=== PATIENT | female | born 1940 | race Caucasian/White ===

== ENCOUNTER 2020-08-04 15:55 | Inpatient (IN) | payer MEDICARE, OTHER ==
[2020-08-04] MEDS ORDERED: ACETAMINOPHEN TAB 500 MG TAB PO STA (16:24)
[2020-08-04] MEDS: SODIUM CHLORIDE 0.9% 1,000 ML IV SCH (16:35)
[2020-08-04 16:54] LABS: Basophils # (A) 0.1 k/uL (0-0.2); Basophils % (A) 1 %; Eosinophils % (A) 1 %; HGB 14.3 gm/dL (11.4-16.0); Lymphocytes # (A) 0.3 k/uL (1.0-4.8); Lymphocytes % (A) 4 %; MCHC 34.2 g/dL (31.0-37.0); MCV 87.8 fL (80.0-100.0); Mean Platelet Volume 7.2; Monocytes # (A) 0.2 k/uL (0-1.0); Monocytes % (A) 3 %; Neutrophils # (A) 6.2 k/uL (1.3-7.7); Neutrophils % (A) 90 %; Platelet Count 234 k/uL (150-450); RBC 4.78 m/uL (3.80-5.40); RDW 12.8 % (11.5-15.5); WBC 6.8 k/uL (3.8-10.6)
[2020-08-04 17:07] LABS: ALT 42 U/L (4-34); AST 65 U/L (14-36); African American GFR (CKD) >90 (>60 ml/min/1.73 sqM); Albumin 3.4 g/dL (3.5-5.0); Alkaline Phosphatase 50 U/L (38-126); Anion Gap 5 mmol/L; Blood Urea Nitrogen 9 mg/dL (7-17); C Reactive Protein 47.5 mg/L (<10.0); Carbon Dioxide 26 mmol/L (22-30); Chloride 102 mmol/L (98-107); Glucose 182 mg/dL (74-99); LDH 1278 U/L (313-618); Magnesium 1.6 mg/dL (1.6-2.3); Non-African American GFR(CKD) 88 (>60 ml/min/1.73 sqM); Sodium 133 mmol/L (137-145); Total Bilirubin 0.8 mg/dL (0.2-1.3); Total Protein 6.6 g/dL (6.3-8.2)
[2020-08-04 17:09] LABS: Potassium 4.4 mmol/L (3.5-5.1)
[2020-08-04 17:25] LABS: Partial Thromboplastin Time 23.2 sec (22.0-30.0); Prothrombin Time 9.9 sec (9.0-12.0)
[2020-08-04 17:27] LABS: D-Dimer 0.83 mg/L FEU (<0.60)
--- NOTE | 2020-08-04 18:26 | ED ---
SOB HPI - General Source: patient, RN notes reviewed, old records reviewed Mode of arrival: ambulatory Limitations: no limitations <Josselyn Reilly - Last Filed: 08/04/20 18:56> <Casey Zaman - Last Filed: 08/04/20 19:18> - General Chief Complaint: Shortness of Breath Stated Complaint: SOB,Weakness Time Seen by Provider: 08/04/20 16:10 - History of Present Illness Initial Comments: Patient is a transfer from [facility] who presents emergency department today with 1 week of upper respiratory congestion, shortness of breath. Patient complains of generally weak weakness and poor appetite. She was seen at [facility] and has suspected Coban 19 infection based on the CT chest angioma showing no signs of PE but moderate Covid infection. Mild upper mediastinal adenopathy and moderate subcarinal adenopathy. This was interpreted by Dr. Flores. Patient presents emergency Department somewhat hypoxic with oxygen saturation 92% on room air. She was started on supplemental oxygen and IV fluids. She had blood cultures obtained. Patient lab work from previous hospital visit was reviewed and we did add blood cultures and d-dimer testing. Her influenza testing was negative and her rapid Coban test was negative. She denies any known history of sick contacts. She was given 6 mg of Decadron prior to arrival. (Josselyn Reilly) - Related Data Allergies Allergy/AdvReac Type Severity Reaction Status Date / Time No Known Allergies Allergy Verified 08/04/20 16:06 Review of Systems ROS Other: All systems not noted in ROS Statement are negative. <Josselyn Reilly - Last Filed: 08/04/20 18:56> ROS Other: All systems not noted in ROS Statement are negative. <Casey Zaman - Last Filed: 08/04/20 19:18> ROS Statement: Those systems with pertinent positive or pertinent negative responses have been documented in the HPI. Past Medical History Past Medical History: No Reported History History of Any Multi-Drug Resistant Organisms: None Reported Past Surgical History: No Surgical Hx Reported Past Psychological History: No Psychological Hx Reported Smoking Status: Never smoker Past Alcohol Use History: Occasional Past Drug Use History: None Reported <Josselyn Reilly - Last Filed: 08/04/20 18:56> General Exam Limitations: no limitations General appearance: alert, in no apparent distress Head exam: Present: atraumatic, normocephalic, normal inspection Eye exam: Present: normal appearance, PERRL, EOMI. Absent: scleral icterus, conjunctival injection, periorbital swelling ENT exam: Present: normal exam, mucous membranes moist Neck exam: Present: normal inspection. Absent: tenderness, meningismus, lymphadenopathy Respiratory exam: Present: normal lung sounds bilaterally. Absent: respiratory distress, wheezes, rales, rhonchi, stridor Cardiovascular Exam: Present: regular rate, normal rhythm, normal heart sounds. Absent: systolic murmur, diastolic murmur, rubs, gallop, clicks GI/Abdominal exam: Present: soft, normal bowel sounds. Absent: distended, tenderness, guarding, rebound, rigid Neurological exam: Present: alert, oriented X3, CN II-XII intact Psychiatric exam: Present: normal affect, normal mood Skin exam: Present: warm, dry, intact, normal color. Absent: rash <Josselyn Reilly - Last Filed: 08/04/20 18:56> - General Exam Comments Initial Comments: [id number] female. Alert and oriented. No distress. (Josselyn Reilly) Course <Casey Zaman - Last Filed: 08/04/20 19:18> Vital Signs 08/04/20 08/04/20 08/04/20 15:58 17:25 18:03 Temperature 100.3 F H 98.8 F 98.5 F Pulse Rate 73 83 64 Respiratory 22 24 18 Rate Blood Pressure 151/77 135/45 154/73 O2 Sat by Pulse 93 L 93 L 92 L Oximetry - Reevaluation(s) Reevaluation #1: 08/04/20 19:17 PA supervision: I personally evaluate this case patient does present from a outside facility, [facility], with complaints of shortness of breath. The workup demonstrates evidence of Covid 19 pneumonia. She also demonstrate hypoxemia. Patient will be admitted. I do agree with the assessment and plan. (Casey Zaman) Procedures - [place] Protocol (Time Out) Nurse: Miya Oliva <Josselyn Reilly - Last Filed: 08/04/20 18:56> Medical Decision Making - Lab Data Result diagrams: 08/04/20 16:38 08/04/20 16:38 - Radiology Data Radiology results: report reviewed <Josselyn Reilly - Last Filed: 08/04/20 18:56> - Lab Data Result diagrams: 08/04/20 16:38 08/04/20 16:38 <Casey Zaman - Last Filed: 08/04/20 19:18> - Medical Decision Making Irma is a 80-year-old female presents emergency department today for evaluat ion for shortness of breath weakness fatigue. Labwork was reviewed and showed a mildly elevated d-dimer of 0.83. White blood cell count was normal at 6.8. Patient's electrolytes are within normal limits. Glucose is 182. She did receive 6 mg of Decadron at [facility]. CT angios shows no signs of PE but moderate cold 19 infection. Patient was found be approximately placed on supplemental oxygen. He does have elevated CRP and LDH. Her rapid covert test is negative. Influenza test was negative earlier today. He tolerated this time for weakness hypoxia. Case discussed with Dr. Zaman. Placed on covid protocol. (Josselyn Reilly) - Lab Data Lab Results 08/04/20 08/04/20 08/04/20 Range/Units 16:37 16:38 16:38 WBC 6.8 (3.8-10.6) k/uL RBC 4.78 (3.80-5.40) m/uL Hgb 14.3 (11.4-16.0) gm/dL Hct 42.0 (34.0-46.0) % MCV 87.8 (80.0-100.0) fL MCH 30.0 (25.0-35.0) pg MCHC 34.2 (31.0-37.0) g/dL RDW 12.8 (11.5-15.5) % Plt Count 234 (150-450) k/uL MPV 7.2 Neutrophils % 90 % Lymphocytes % 4 % Monocytes % 3 % Eosinophils % 1 % Basophils % 1 % Neutrophils # 6.2 (1.3-7.7) k/uL Lymphocytes # 0.3 L (1.0-4.8) k/uL Monocytes # 0.2 (0-1.0) k/uL Eosinophils # 0.0 (0-0.7) k/uL Basophils # 0.1 (0-0.2) k/uL PT 9.9 (9.0-12.0) sec INR 1.0 (<1.2) APTT 23.2 (22.0-30.0) sec D-Dimer 0.83 H (<0.60) mg/L FEU Sodium (137-145) mmol/L Potassium (3.5-5.1) mmol/L Chloride (98-107) mmol/L Carbon Dioxide (22-30) mmol/L Anion Gap mmol/L BUN (7-17) mg/dL Creatinine (0.52-1.04) mg/dL Est GFR (CKD-EPI)AfAm (>60 ml/min/1.73 sqM) Est GFR (CKD-EPI)NonAf (>60 ml/min/1.73 sqM) Glucose (74-99) mg/dL Plasma Lactic Acid Prashant (0.7-2.0) mmol/L Calcium (8.4-10.2) mg/dL Magnesium (1.6-2.3) mg/dL Total Bilirubin (0.2-1.3) mg/dL AST (14-36) U/L ALT (4-34) U/L Alkaline Phosphatase (38-126) U/L Lactate Dehydrogenase (313-618) U/L C-Reactive Protein (<10.0) mg/L Total Protein (6.3-8.2) g/dL Albumin (3.5-5.0) g/dL Coronavirus (PCR) Not Detected (Not Detectd) 08/04/20 08/04/20 Range/Units 16:38 16:38 WBC (3.8-10.6) k/uL RBC (3.80-5.40) m/uL Hgb (11.4-16.0) gm/dL Hct (34.0-46.0) % MCV (80.0-100.0) fL MCH (25.0-35.0) pg MCHC (31.0-37.0) g/dL RDW (11.5-15.5) % Plt Count (150-450) k/uL MPV Neutrophils % % Lymphocytes % % Monocytes % % Eosinophils % % Basophils % % Neutrophils # (1.3-7.7) k/uL Lymphocytes # (1.0-4.8) k/uL Monocytes # (0-1.0) k/uL Eosinophils # (0-0.7) k/uL Basophils # (0-0.2) k/uL PT (9.0-12.0) sec INR (<1.2) APTT (22.0-30.0) sec D-Dimer (<0.60) mg/L FEU Sodium 133 L (137-145) mmol/L Potassium 4.4 (3.5-5.1) mmol/L Chloride 102 (98-107) mmol/L Carbon Dioxide 26 (22-30) mmol/L Anion Gap 5 mmol/L BUN 9 (7-17) mg/dL Creatinine 0.59 (0.52-1.04) mg/dL Est GFR (CKD-EPI)AfAm >90 (>60 ml/min/1.73 sqM) Est GFR (CKD-EPI)NonAf 88 (>60 ml/min/1.73 sqM) Glucose 182 H (74-99) mg/dL Plasma Lactic Acid Prashant 1.2 (0.7-2.0) mmol/L Calcium 8.0 L (8.4-10.2) mg/dL Magnesium 1.6 (1.6-2.3) mg/dL Total Bilirubin 0.8 (0.2-1.3) mg/dL AST 65 H (14-36) U/L ALT 42 H (4-34) U/L Alkaline Phosphatase 50 (38-126) U/L Lactate Dehydrogenase 1278 H (313-618) U/L C-Reactive Protein 47.5 H (<10.0) mg/L Total Protein 6.6 (6.3-8.2) g/dL Albumin 3.4 L (3.5-5.0) g/dL Coronavirus (PCR) (Not Detectd) 08/04/20 18:25 EKG performed at 10:37 AM shows sinus rhythm with premature severe ventricular complex. Low voltage QRS. Septal infarct. Care is for 74. QT QTc is 350/388. (Josselyn Reilly) - Radiology Data Review of CT angiogram report showing moderate occult infection with surrounding mediastinal adenopathy. No signs of pulmonary bolus. (Josselyn Reilly) Disposition Is patient prescribed a controlled substance at d/c from ED?: No Time of Disposition: 19:00 <Josselyn Reilly - Last Filed: 08/04/20 18:56> <Casey Zaman - Last Filed: 08/04/20 19:18> Clinical Impression: Suspected COVID-19 virus infection, Hypoxia, Weakness Disposition: ADMITTED IP TO THIS HOSP Condition: Good Referrals: Domenic Allison MD [Primary Care Provider] - 1-2 days
[2020-08-04] MEDS ORDERED: IBUPROFEN 400 MG TAB PO PRN (19:00)
[2020-08-04] MEDS ORDERED: NALOXONE 0.4 MG/ML 1 ML VIAL IV PRN (19:00)
[2020-08-04] MEDS ORDERED: KETOROLAC 15 MG/ML 1 ML VIAL IVP PRN (19:00)
[2020-08-04] MEDS ORDERED: ONDANSETRON 4 MG/2 ML VIAL IVP PRN (19:00)
[2020-08-04] MEDS ORDERED: ACETAMINOPHEN TAB 325 MG TAB PO PRN (19:00)
[2020-08-04] MEDS ORDERED: ALBUTEROL HFA INHALER INHALATION STA (19:03)
--- NOTE | 2020-08-04 19:22 | XR ---
EXAMINATION TYPE: XR chest 1V DATE OF EXAM: 08/04/2020 COMPARISON: Outside CTA chest earlier today. HISTORY: Cough. TECHNIQUE: Single AP portable frontal upright view of the chest is obtained. FINDINGS: There are peripheral opacities bilaterally. No pleural effusion or pneumothorax bilateral ly. The cardiac silhouette size is mildly enlarged. The osseous structures are intact. IMPRESSION: Bilateral peripheral acute infiltrates consistent with covid 19 infection.
[2020-08-05 00:29] LABS: Ferritin 661.7 ng/mL (10.0-291.0)
[2020-08-05] MEDS: PANTOPRAZOLE 40 MG/10 ML VIAL IV SCH (09:08)
[2020-08-05] MEDS: DEXAMETHASONE SOD PHOSPHATE 10 MG/ML 1 ML VIAL IV SCH (09:08)
[2020-08-05] MEDS: SODIUM CHLORIDE 0.9% 1,000 ML IV SCH ×2 (09:09→13:02)
[2020-08-05] MEDS: ENOXAPARIN 40 MG/0.4 ML SYRINGE SQ SCH (09:09)
[2020-08-05] MEDS: MAGNESIUM SULFATE-D5W PMX 1 GM in DEXTROSE/WATER 1 100ML.BAG IVPB SCH ×2 (13:00→14:42)
[2020-08-05 13:14] VITALS: BMI 29.7
--- NOTE | 2020-08-05 14:08 | P.HPIM ---
History of Present Illness 72-year-old female who was recently diagnosed with a covid 9 earlier this month around 10-12 days ago came in with compensative generalized weakness which is worsening poor appetite and few episodes of diarrhea. Patient is quite weak and is needing help from family members. Patient was mild hypoxic with mildly elevated d-dimer because of which the CT angios the chest was obtained at the [facility] which didn't show any pulmonary embolism which showed mild upper mediastinal adenopathy and subcarinal adenopathy. Patient was evaluated by pulmonology cleared for discharge but patient is saturating at 90% and patien t is quite weak because of which will obtain PT and OT consultation and monitor overnight possibility of discharge tomorrow if her oxygen saturations remained stable patient is presently on Decadron which will be continued Review of Systems REVIEW OF SYSTEMS: CONSTITUTIONAL: As mentioned in HPI HEENT: No recent visual problems or hearing problems. Denied any sore throat. CARDIOVASCULAR: No chest pain, orthopnea, PND, no palpitations, no syncope. PULMONARY: no cough, no hemoptysis. GASTROINTESTINAL: no nausea, no vomiting, no abdominal pain. NEUROLOGICAL: No headaches, no weakness, no numbness. HEMATOLOGICAL: Denies any bleeding or petechiae. GENITOURINARY: Denies any burning micturition, frequency, or urgency. MUSCULOSKELETAL/RHEUMATOLOGICAL: Denies any joint pain, swelling, or any muscle pain. ENDOCRINE: Denies any polyuria or polydipsia. The rest of the 14-point review of systems is negative. Past Medical History Past Medical History: No Reported History History of Any Multi-Drug Resistant Organisms: None Reported Past Surgical History: Appendectomy Smoking Status: Never smoker Medications and Allergies Home Medications Medication Instructions Recorded Confirmed Type Aspirin EC [Ecotrin Low Dose] 81 mg PO DAILY 08/04/20 08/04/20 History Biotin 300mcg 1 tab PO DAILY 08/04/20 08/04/20 History Calcium Lactate 84mg 1 tab PO BID 08/04/20 08/04/20 History Love Extract (Unknown Strength) 1 tab PO DAILY 08/04/20 08/04/20 History Cholecalciferol (Vitamin D3) 125 mcg PO DAILY 08/04/20 08/04/20 History [Vitamin D3] Fish Oil 100-160mg 1 tab PO DAILY 08/04/20 08/04/20 History Gelatin 650mg 1 tab PO DAILY 08/04/20 08/04/20 History Lycopene 10 mg PO DAILY 08/04/20 08/04/20 History Vitamin A 25,000iu 1 tab PO DAILY 08/04/20 08/04/20 History Vitamin K2 100mcg 1 tab PO DAILY 08/04/20 08/04/20 History Allergies Allergy/AdvReac Type Severity Reaction Status Date / Time No Known Allergies Allergy Verified 08/04/20 21:19 Physical Exam Vitals: Vital Signs Temp Pulse Pulse Resp BP BP Pulse Ox 08/05/20 11:29 98.1 F 76 17 198/80 90 L 08/05/20 09:00 18 08/05/20 02:00 97.6 F 59 L 18 149/78 91 L 08/04/20 20:00 97.7 F 67 160/86 94 L 08/04/20 19:35 98 F 64 18 160/81 95 08/04/20 18:03 98.5 F 64 18 154/73 92 L 08/04/20 17:25 98.8 F 83 24 135/45 93 L 08/04/20 15:58 100.3 F H 73 22 151/77 93 L Intake and Output 08/04/20 08/05/20 08/05/20 22:59 06:59 14:59 Intake Total 1200 Balance 1200 Intake: Intake, IV Titration 700 Amount Sodium Chloride 0.9% 1, 700 000 ml @ 100 mls/hr IV . Q10H [facility] Rx#:[id number] Oral 500 Other: Voiding Method Toilet # Voids 2 Weight 76.204 kg 76.204 kg PHYSICAL EXAMINATION: GENERAL: The patient is alert and oriented x3, not in any acute distress. Well developed, well nourished. HEENT: Pupils are round and equally reacting to light. EOMI. No scleral icterus. No conjunctival pallor. Normocephalic, atraumatic. No pharyngeal erythema. No thyromegaly. CARDIOVASCULAR: S1 and S2 present. No murmurs, rubs, or gallops. PULMONARY: Chest is clear to auscultation, no wheezing or crackles. ABDOMEN: Soft, nontender, nondistended, normoactive bowel sounds. No palpable organomegaly. MUSCULOSKELETAL: No joint swelling or deformity. EXTREMITIES: No cyanosis, clubbing, or pedal edema. NEUROLOGICAL: Gross neurological examination did not reveal any focal deficits. SKIN: No rashes. Results CBC & Chem 7: 08/04/20 16:38 08/04/20 16:38 Labs: Abnormal Lab Results - Last 24 Hours (Table) 08/04/20 08/04/20 08/04/20 Range/Units 16:38 16:38 16:38 Lymphocytes # 0.3 L (1.0-4.8) k/uL D-Dimer 0.83 H (<0.60) mg/L FEU Sodium 133 L (137-145) mmol/L Glucose 182 H (74-99) mg/dL Calcium 8.0 L (8.4-10.2) mg/dL Ferritin 661.7 H (10.0-291.0) ng/mL AST 65 H (14-36) U/L ALT 42 H (4-34) U/L Lactate Dehydrogenase 1278 H (313-618) U/L C-Reactive Protein 47.5 H (<10.0) mg/L Albumin 3.4 L (3.5-5.0) g/dL Procalcitonin (0.02-0.09) ng/mL 08/04/20 Range/Units 16:38 Lymphocytes # (1.0-4.8) k/uL D-Dimer (<0.60) mg/L FEU Sodium (137-145) mmol/L Glucose (74-99) mg/dL Calcium (8.4-10.2) mg/dL Ferritin (10.0-291.0) ng/mL AST (14-36) U/L ALT (4-34) U/L Lactate Dehydrogenase (313-618) U/L C-Reactive Protein (<10.0) mg/L Albumin (3.5-5.0) g/dL Procalcitonin 0.10 H (0.02-0.09) ng/mL Thrombosis Risk Factor Assmnt - Choose All That Apply Each Factor Represents 1 point: Obesity (BMI >25) Each Risk Factor Represents 3 Points: Age 75 years or older Thrombosis Risk Factor Assessment Total Risk Factor Score: 4 Thrombosis Risk Factor Assessment Level: Moderate Risk Assessment and Plan Plan: -Covid 19 infection: Patient is on room air but the low normal saturations will be monitored overnight because of significant generalized weakness patient will be evaluated by PT and OT possibility of discharge it later today or tomorrow morning -Diarrhea: Secondary to viral gastroenteritis. -Rule out pulmonary embolism Hypertension essential tremor benign DVT prophylaxis with Lovenox
[2020-08-05] MEDS: AZITHROMYCIN 500 MG TAB PO SCH (14:42)
--- NOTE | 2020-08-05 14:45 | CONS ---
CONSULTATION PULMONARY/CRITICAL CARE CONSULTATION: DATE OF SERVICE: 08/05/2020 REASON FOR CONSULTATION: Shortness of breath, weakness. This is a 80-year-old female who was admitted through the emergency room on August 04, 2020. She apparently was initially seen at [facility] and transferred down to [facility]. She states she has been sick for at least 10-11 days, maybe a bit longer. The patient apparently tested negative for COVID infection. She apparently was complaining of some weakness, decreased appetite, fatigue, and mild cough. She really denied much in the way of shortness of breath. She apparently was seen at [facility] most suspected to have COVID-19 infection based on her symptoms and her CT scan. Her saturation was 92% on room air. Currently, she is not on any oxygen therapy. She is getting saline at 100 mL an hour. I questioned the nurse why this patient was actually even admitted. She looks quite stable. The patient herself is a bit confused as to why she was brought down to [facility], especially since she tested negative for COVID infection. . HOME MEDICATIONS: Include vitamin K, galan extract, calcium lactate, biotin, gelatin, fish oil, vitamin A, vitamin D3, and aspirin. Current medications are reviewed. ALLERGIES: Denied. PAST MEDICAL HISTORY: Negative. SURGICAL HISTORY: None. SOCIAL HISTORY: Negative for tobacco or illicit drug use. She drinks occasionally. FAMILY HISTORY: Noncontributory. REVIEW OF SYSTEMS: CONSTITUTIONAL: Weakness/fatigue. NEUROLOGIC: Negative. HEENT: Negative. CARDIOVASCULAR: Negative. PULMONARY: Mild shortness of breath, not present currently and mild cough and chest congestion. GI: Nausea. : Negative. RHEUMATOLOGIC: Negative. IMMUNOLOGIC: Negative. ENDOCRINOLOGIC: Negative. DERMATOLOGIC: Negative. Current vital signs include a temperature 98.1, T-max is 100.3, heart rate 76, respiratory rate 17, blood pressure 149/78 mean 101, room air saturation between 90% and 92%. She appears in no acute distress. There is no audible wheezing, use of accessory muscles or conversational dyspnea. HEENT: Examination is grossly unremarkable. NECK: Supple, full range of motion. No adenopathy. Neck veins are flat. CARDIOVASCULAR: Examination reveals regular rhythm and rate. Heart rate 76 beats per minute. S1, S2 normal. LUNGS: Reveal relatively clear breath sounds. No wheezes, rhonchi, or crackles. Breath sounds equal bilaterally. ABDOMEN: Soft, bowel sounds are heard. EXTREMITIES: Intact. No cyanosis, clubbing, or edema. SKIN: Without rash. NEUROLOGIC: Examination is nonfocal. CBC was normal. White count 6.8, hemoglobin 14.3, hematocrit 42.0, platelet count 234,000. PT, INR and PTT all normal. D-dimer is 0.83. Sodium 133, potassium 4.4, chloride 102, CO2 is 26, anion gap is 5. BUN and creatinine were 9 and 0.59, glucose 182, calcium 8, ferritin 661. AST, ALT were 65 and 42 respectively. LDH 1278. C- reactive protein 47.5. Procalcitonin 0.10. COVID testing was negative. Microbiology is currently negative. The chest x-ray does suggest some either atelectasis or infiltrate in both lungs, more in the lower lobes than in the upper lobes. Medications reviewed. The patient is currently on Tylenol, aspirin, Rocephin, vitamin D3, Decadron, Lovenox, ibuprofen, Toradol, magnesium replacement, Narcan, Zofran, Protonix, and saline IV. ASSESSMENT: 1. Rule out COVID-19 pneumonitis, with a false negative COVID test. 2. Rule out community-acquired pneumonia. 3. History of no other major medical problems. PLAN: I will add some Zithromax to her regimen. Her other medications are fine for now. I would consider repeat testing her. Additional recommendations and suggestions ARE forthcoming. Her COVID-19 PCR was negative here. Will continue to follow. It will be nice also to be able to get a peek at the CAT scan that was done at [facility]. No additional recommendations are made. Prognosis is guarded. MMODL / IJN: [id number] /
[2020-08-05] MEDS ORDERED: hydrALAZINE HCL 10 MG TAB PO STA (17:33)
[2020-08-06] MEDS: SODIUM CHLORIDE 0.9% 1,000 ML IV SCH ×2 (05:07→09:14)
[2020-08-06 07:15] LABS: Glucose,Whole Blood 138 mg/dL (75-99)
[2020-08-06] MEDS: INSULIN ASPART (NovoLOG) 100 UNIT/ML VIAL SQ SCH ×2 (08:50→13:04)
[2020-08-06] MEDS: DEXAMETHASONE SOD PHOSPHATE 10 MG/ML 1 ML VIAL IV SCH (08:50)
[2020-08-06] MEDS: AZITHROMYCIN 500 MG TAB PO SCH (08:53)
[2020-08-06] MEDS: PANTOPRAZOLE 40 MG/10 ML VIAL IV SCH (08:54)
[2020-08-06] MEDS: ENOXAPARIN 40 MG/0.4 ML SYRINGE SQ SCH (08:54)
[2020-08-06] MEDS ORDERED: ASPIRIN 81 MG PO SCH (09:00)
[2020-08-06] MEDS ORDERED: CHOLECALCIFEROL 1,000 UNIT TAB PO SCH (09:00)
[2020-08-06 11:12] LABS: Glucose,Whole Blood 164 mg/dL (75-99)
[2020-08-06 11:40] VITALS: BP 182/86; PULSE 61; RESP 17; TEMP 98
--- NOTE | 2020-08-06 13:42 | P.DS ---
Providers Date of admission: 08/04/20 19:16 Expected date of discharge: 08/06/20 Attending physician: Ned Lowry Consults: 08/04/20 19:00 Consult Physician Stat Consulting Provider: Caridad Guo Consult Reason/Comments: suspected covid, infiltrate Do you want consulting provider notified?: Yes, Notify in am Primary care physician: Domenic Allison MD Hospital Course: Final diagnosis -Covid 19 infection -Diarrhea: Secondary to viral gastroenteritis -Ruled out pulmonary embolism -Hypertension -essential tremor benign -DVT prophylaxis Discharge disposition Patient is being discharged in a stable condition with guarded prognosis to home. Patient will follow-up with Dr. Kaity Allison in the outpatient setting upon discharge. Patient is to continue with oral antibiotics in the form of Zithromax 500 mg daily for the next 4 days along with Ceftin 500 mg twice daily for the next 4 days to complete the course. She will also continue on dexamethasone 6mg daily to complete the course. Total time taken is greater than 35 minutes. History of present illness This is a 80-year-old female who was recently admitted from [facility] who was recently diagnosed with Covid 19 earlier in the month and was experiencing generalized weakness, poor appetite, diarrhea along with some mild hypoxia and elevated d-dimer was transferred here for further evaluation. Patient was seen and evaluated by pulmonary. She had a CT angiogram of the chest which was negative for pulmonary embolism but did show some adenopathy in the upper mediastinal and subcarinal area. Patient's oxygen saturations were 90% and patient continued to be quite weak. Patient was seen and evaluated by physical therapy recommending continuing to use her walker and family will be staying with her for a few days to help. Today patient's oxygen saturation is 95% on room air and patient is maintained on dexamethasone. Patient will continue with oral Decadron 6 mg daily to complete a course along with Zithromax and Ceftin. Patient's blood pressure during hospitalization was slightly elevated and she states her blood pressure is high when in the hospital or at the doctor's office. Start the patient to obtain a blood pressure cuff and keep a diary of blood pressure readings and monitor closely and bring with her to primary care follow-up. Patient does not take any blood pressure medications in the outpatient setting. Currently no reports of chest pain, shortness of breath, or palpitations. Patient is afebrile. No reports of nausea or vomiting and patient is tolerating diet. Patient will be discharged home today. On exam vital signs are stable. Temp is 98.0F, pulse is 61, respirations are 17, blood pressure is 182/86, oxygen saturation is 93-95% on room air. Cardio S1, S2 are muffled. Respiratory system shows diminished breath sounds at the bases with no wheezing or rhonchi noted. Abdomen is soft and nontender. Nervous system shows no focal deficits. Please refer to medication reconciliation sheet for a list of medications. Patient Condition at Discharge: Good Plan - Discharge Summary Discharge Rx Participant: No New Discharge Prescriptions: New Cefuroxime Axetil [Ceftin] 500 mg PO BID 3 Days #6 tab Dexamethasone 6 mg PO DAILY 8 Days #8 tablet Acetaminophen Tab [Tylenol] 650 mg PO Q6HR PRN tab PRN Reason: Mild Pain Or Fever > 100.5 Azithromycin [Zithromax] 500 mg PO DAILY 4 Days #4 tab Continue Vitamin K2 100mcg 1 tab PO DAILY Calcium Lactate 84mg 1 tab PO BID Biotin 300mcg 1 tab PO DAILY Lycopene 10 mg PO DAILY Gelatin 650mg 1 tab PO DAILY Fish Oil 100-160mg 1 tab PO DAILY Vitamin A 25,000iu 1 tab PO DAILY Cholecalciferol (Vitamin D3) [Vitamin D3] 125 mcg PO DAILY Aspirin EC [Ecotrin Low Dose] 81 mg PO DAILY Love Extract (Unknown Strength) 1 tab PO DAILY Discharge Medication List Aspirin EC [Ecotrin Low Dose] 81 mg PO DAILY 08/04/20 [History] Biotin 300mcg 1 tab PO DAILY 08/04/20 [History] Calcium Lactate 84mg 1 tab PO BID 08/04/20 [History] Love Extract (Unknown Strength) 1 tab PO DAILY 08/04/20 [History] Cholecalciferol (Vitamin D3) [Vitamin D3] 125 mcg PO DAILY 08/04/20 [History] Fish Oil 100-160mg 1 tab PO DAILY 08/04/20 [History] Gelatin 650mg 1 tab PO DAILY 08/04/20 [History] Lycopene 10 mg PO DAILY 08/04/20 [History] Vitamin A 25,000iu 1 tab PO DAILY 08/04/20 [History] Vitamin K2 100mcg 1 tab PO DAILY 08/04/20 [History] Acetaminophen Tab [Tylenol] 650 mg PO Q6HR PRN tab 08/06/20 [Rx] Azithromycin [Zithromax] 500 mg PO DAILY 4 Days #4 tab 08/06/20 [Rx] Cefuroxime Axetil [Ceftin] 500 mg PO BID 3 Days #6 tab 08/06/20 [Rx] Dexamethasone 6 mg PO DAILY 8 Days #8 tablet 08/06/20 [Rx] Follow up Appointment(s)/Referral(s): Domenic Allison MD [Primary Care Provider] - 1-2 days (PT would like to make appointment. Please call office for Hospital follow up) Patient Instructions/Handouts: Viral Pneumonia (DC) Activity/Diet/Wound Care/Special Instructions: Okay for discharge Activity limited until follow-up Continue current diet Follow up with primary care provider upon discharge Obtain a blood pressure cuff and keep a daily log of blood pressure readings for primary care follow-up Continue with antibiotics until finished Continue with steroids until finished Discharge Disposition: HOME SELF-CARE
--- NOTE | 2020-08-06 14:27 | P.PN ---
Subjective Progress Note Date: 08/06/20 Principal diagnosis: Community-acquired pneumonia The patient is seen today 08/06/2020 in follow-up on the regular medical floor. She is awake and alert in no acute distress. She is currently up in the room ambulating. Maintaining O2 saturations in the 90s on room air. Remains on ceftriaxone and azithromycin along with Decadron, Lovenox, vitamin supplements. Objective - Vital Signs Vital signs: Vital Signs Temp 98 F 08/06/20 11:40 Pulse 61 08/06/20 11:40 Resp 17 08/06/20 11:40 BP 182/86 08/06/20 11:40 Pulse Ox 93 L 08/06/20 11:40 Intake & Output 08/05/20 08/06/20 08/06/20 18:59 06:59 18:59 Output Total 6 Balance -6 Weight 76.204 kg Output: Urine 6 Other: Voiding Method Toilet Toilet # Bowel Movements 4 - Exam GENERAL EXAM: Alert, active, very pleasant 80-year-old female patient, on room air, comfortable in no apparent distress. HEAD: Normocephalic. EYES: Normal reaction of pupils, equal size. NOSE: Clear with pink turbinates. THROAT: No erythema or exudates. NECK: No masses, no JVD. CHEST: No chest wall deformity. LUNGS: Equal air entry with faint bibasilar crackles posteriorly. CVS: S1 and S2 normal with no audible murmur, regular rhythm. ABDOMEN: No hepatosplenomegaly, normal bowel sounds, no guarding or rigidity. SPINE: No scoliosis or deformity SKIN: No rashes CENTRAL NERVOUS SYSTEM: No focal deficits, tone is normal in all 4 extremities. EXTREMITIES: There is no peripheral edema. No clubbing, no cyanosis. Peripheral pulses are intact. - Labs CBC & Chem 7: 08/04/20 16:38 08/04/20 16:38 Labs: Abnormal Lab Results - Last 24 Hours (Table) 08/06/20 08/06/20 Range/Units 07:14 11:11 POC Glucose (mg/dL) 138 H 164 H (75-99) mg/dL Assessment and Plan Assessment: 1 community-acquired pneumonia, recovered. CoVID 19 screen negative 2 No other significant medical history Plan: The patient was seen and evaluated by Dr. Guo She is cleared for discharge from the pulmonary standpoint Follow-up closely with her PCP I, the cosigning physician, performed a history & physical examination of the patient. Lungs sounds with faint bibasilar crackles posteriorly. Maintaining good O2 saturations in the 90s on room air. I discussed the assessment and plan of care with my nurse practitioner, Chinyere Ngo. I attest to the above note as dictated by her.
--- NOTE | 2020-08-11 06:25 | CDI ---
Documentation Clarification Form Date: 08/11/20 From: Asia Greene Phone: Please call Vanessa Tam at from 8-5pm for questions Admit Date: 08/04/2020 07:16:00 PM Patient Name: Irma Pavon Visit Number: [id number] Discharge Date: 08/06/2020 02:15:00 PM ATTENTION: The Clinical Documentation Specialists (CDI) and [facility] Coding Staff appreciate your assistance in clarifying documentation. Please respond to the clarification below the line at the bottom and electronically sign. The CDI & [facility] Coding staff will review the response and follow-up if needed. Please note: Queries are made part of the Legal Health Record. If you have any questions, please contact the author of this message via ITS. Dr. Peter Stewart, Conflicting documentation has been found in the medical record: Your DS states COVID [address] Jaimes's consult states rule out COVID19 pneumonitis, with a false negative COVID test. Dr Guo's PN- community -acquired pneumonia, recovered. COVID screen negative. History/Risk Factors: HTN, viral gastroenteritis Clinical Indicators: Patient diagnosed with COVID 19 earlier this month around 10-12 days ago came in with compensative generalized weakness with worsening poor appetite and few episodes of diarrhea. Mildly hypoxic with elevated d-dimer because of which the CT angios the chest was obtained and negative for PE. Saturating at 90%. CXR- bilateral peripheral acute infiltrates consistent with COVID 19 infection. COVID TEST: Negative Treatment: IV Rocephin, Dexamethasone IV,Azithromycin 500 mg po In your opinion, what is the most clinically appropriate diagnosis for this patient? Yes, COVID 19 infection is present/active during this admission as evidence by (additional clinical support) No, COVID 19 infection was ruled out Other explanation of clinical findings Unable to determine (no explanation for clinical findings) Unable to determine. I cannot speak for Dr. Jaimes or Dr. Brant GROVE
--- NOTE | 2020-08-17 10:28 | CDI ---
Unable to determineDocumentation Clarification Form Date: 08/17/20 From: Asia Greene Phone: If you have a question about this query, please contact Vanessa Tam, Gas Collection System Operator at [phone] between 8am and 5pm Admit Date: 08/04/2020 07:16:00 PM Patient Name: Irma Pavon Visit Number: [id number] Discharge Date: 08/06/2020 02:15:00 PM ATTENTION: The Clinical Documentation Specialists (CDI) and [facility] Coding Staff appreciate your assistance in clarifying documentation. Please respond to the clarification below the line at the bottom and electronically sign. The CDI & [facility] Coding staff will review the response and follow-up if needed. Please note: Queries are made part of the Legal Health Record. If you have any questions, please contact the author of this message via ITS. Dr. Casey Jaimes, Conflicting documentation has been found in the medical record: Per Dr Stewart's DS states COVID 19 infection. Your consult states rule out COVID19 pneumonitis, with a false negative COVID test. Dr Guo's PN- community -acquired pneumonia, recovered. COVID screen negative. History/Risk Factors: HTN, viral gastroenteritis Clinical Indicators: Patient diagnosed with COVID 19 earlier this month around 10-12 days ago came in with compensative generalized weakness with worsening poor appetite and few episodes of diarrhea. Mildly hypoxic with elevated d-dimer because of which the CT angios the chest was obtained and negative for PE.Saturating at 90%. CXR- bilateral peripheral acute infiltrates consistent with COVID 19 infection. COVID TEST: Negative Treatment: IV Rocephin, Dexamethasone IV,Azithromycin 500 mg po In your opinion, what is the most clinically appropriate diagnosis for this patient? Yes, COVID 19 infection is present/active during this admission as evidence by (additional clinical support) No, COVID 19 infection was ruled out Other explanation of clinical findings Unable to determine (no explanation for clinical findings) Unable to determine MTDD
== END 2020-08-06 14:15 | disposition home or self-care (01) | DRG 177 ==
LOC: EC 15:55 → 6NMEDSUR 19:16
PROVIDERS: ADMIT Internal Medicine; ATTEND Internal Medicine
DX: U07.1 COVID-19 (principal); J12.89 Other viral pneumonia; A08.39 Other viral enteritis; I10 Essential (primary) hypertension; R09.02 Hypoxemia; G25.0 Essential tremor; Z79.82 Long term (current) use of aspirin; Z79.899 Other long term (current) drug therapy
CPT/HCPCS: 36415; 71045; 80053; 82728; 83605; 83615; 83735; 84145; 85025; 85379; 85610; 85730; 86140; 87635; 93005; 94640; 96365; 96366; 99285

== ENCOUNTER 2023-07-03 17:16 | Inpatient (IN) | payer MEDICARE, OTHER ==
--- NOTE | 2023-07-03 18:33 | ED ---
General Adult HPI - General Chief complaint: Weakness Stated complaint: Weakness Time Seen by Provider: 07/03/23 17:29 Source: patient, EMS Mode of arrival: EMS Limitations: no limitations - History of Present Illness Initial comments: A 83-year-old female presents to the ED with a chief complaint of generalized weakness. Patient states that she woke up at 4 AM feeling generally weak. States that she went back to sleep and still felt the same way when she woke up this morning. States that she tried to cook eggs when so woke back up in the morning at approximately 6 AM but was having significant difficulty doing so. Upon EMS arrival, patient was found lying down on the ground having vomited on herself. At this time, patient reports only symptoms of generalized weakness. Did not have any other complaints at onset of this. 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 Was sent here for further evaluation. Currently, patient denies chest pain or shortness of breath. No complaints. - Related Data Home Medications Medication Instructions Recorded Confirmed Aspirin EC [Ecotrin Low Dose] 81 mg PO DAILY 08/04/20 08/04/20 Biotin 300mcg 1 tab PO DAILY 08/04/20 08/04/20 Calcium Lactate 84mg 1 tab PO BID 08/04/20 08/04/20 Love Extract (Unknown Strength) 1 tab PO DAILY 08/04/20 08/04/20 Cholecalciferol (Vitamin D3) 125 mcg PO DAILY 08/04/20 08/04/20 [Vitamin D3 (5000 Iu)] Fish Oil 100-160mg 1 tab PO DAILY 08/04/20 08/04/20 Gelatin 650mg 1 tab PO DAILY 08/04/20 08/04/20 Lycopene 10 mg PO DAILY 08/04/20 08/04/20 Vitamin A 25,000iu 1 tab PO DAILY 08/04/20 08/04/20 Vitamin K2 100mcg 1 tab PO DAILY 08/04/20 08/04/20 Previous Rx's Medication Instructions Recorded Acetaminophen Tab [Tylenol] 650 mg PO Q6HR PRN tab 08/06/20 Azithromycin [Zithromax] 500 mg PO DAILY 4 Days #4 tab 08/06/20 cefUROXime axetiL [Ceftin] 500 mg PO BID 3 Days #6 tab 08/06/20 dexAMETHasone [Dexamethasone] 6 mg PO DAILY 8 Days #8 tablet 08/06/20 Allergies Allergy/AdvReac Type Severity Reaction Status Date / Time No Known Allergies Allergy Verified 08/04/20 21:19 Review of Systems ROS Statement: Those systems with pertinent positive or pertinent negative responses have been documented in the HPI. ROS Other: All systems not noted in ROS Statement are negative. Past Medical History Past Medical History: No Reported History History of Any Multi-Drug Resistant Organisms: None Reported Past Surgical History: Appendectomy Past Psychological History: No Psychological Hx Reported Smoking Status: Never smoker General Exam Limitations: no limitations General appearance: alert, in no apparent distress ENT exam: Present: other (Right facial droop upon asking patient to smile. Patient does have dysarthria.) Respiratory exam: Present: normal lung sounds bilaterally Cardiovascular Exam: Present: regular rate, normal rhythm GI/Abdominal exam: Present: soft Neurological exam: Present: alert, oriented X3, other (Finger to nose, [id number], rapid alternating hand movements intact. NIH stroke scale of 2. Patient received one point for facial droop and 1. for dysarthria.) Skin exam: Present: warm, dry Course Vital Signs 07/03/23 17:20 Temperature 99.1 F Pulse Rate 64 Respiratory 18 Rate Blood Pressure 161/90 O2 Sat by Pulse 97 Oximetry Medical Decision Making - Medical Decision Making Was pt. sent in by a medical professional or institution ([facility]ion, AZURE PRINCIPAL SOLUTION SPECIALIST, urgent care, hospital, or chcf...) When possible be specific @ -Sent in by [facility] Did you speak to anyone other than the patient for history (EMS, parent, family, police, friend...)? What history was obtained from this source @ -Spoke to the patient who corroborated history reported by EMS and notes from [facility]. Did you review nursing and triage notes (agree or disagree)? Why? @ -Reviewed records from [facility]. For further details please see HPI. Were old charts reviewed (outside hosp., previous admission, EMS record, old EKG, old radiological studies, urgent care reports/EKG's, chcf records)? Report findings @ -No old charts were reviewed Differential Diagnosis (chest pain, altered mental status, abdominal pain women, abdominal pain men, vaginal bleeding, weakness, fever, dyspnea, syncope, headache, dizziness, GI bleed, back pain, seizure, CVA, palpatations, mental health, musculoskeletal)? @ -Differential Weakness: Hypoglycemia, shock, sepsis, hyponatremia, anemia, infection, ID, ETOH, adverse medicine reaction, overdose, stroke, this is not meant to be an all-inclusive list. EKG interpreted by me (3pts min.). @ -None X-rays interpreted by me (1pt min.). @ -None done CT interpreted by me (1pt min.). @ -None done U/S interpreted by me (1pt. min.). @ -None done What testing was considered but not performed or refused? (CT, X-rays, U/S, labs)? Why? @ -None What meds were considered but not given or refused? Why? @ -None Did you discuss the management of the patient with other professionals (professionals i.e. , PA, [employer] PRINCIPAL SOLUTION SPECIALIST, lab, RT, psych nurse, transition social worker, retail zone specialist, teacher, anti air warfare operations officer, protective services case worker)? Give summary @ -Case discussed with Vicky Gannon, who accepted admission for [facility]. Was smoking cessation discussed for >3mins.? @ -No Was critical care preformed (if so, how long)? @ -No Were there social determinants of health that impacted care today? How? (Homelessness, low income, unemployed, alcoholism, drug addiction, transportation, low edu. Level, literacy, decrease access to med. care, residential, rehab)? @ -No Was there de-escalation of care discussed even if they declined (Discuss DNR or withdrawal of care, Hospice)? DNR status @ -No What co-morbidities impacted this encounter? (DM, HTN, Smoking, COPD, CAD, Cancer, CVA, ARF, Chemo, Hep., AIDS, mental health diagnosis, sleep apnea, morbid obesity)? @ -None Was patient admitted / discharged? Hospital course, mention meds given and route, prescriptions, significant lab abnormalities, going to OR and other pertinent info. @ -Admission 83-year-old female transferred from [facility] due to narrow symptoms. Patient was found to have a CT head and neck that showed stenosis of the right ICA 45% however no evidence of other acute findings. At this time, patient hasn't NIH stroke scale at 2. Patient received 1. for dysarthria 1. for facial droop. Patient outside of the window for TPA at this time. Patient admitted to observation with consult to neurology. Discussed plan of care with patient who is in agreement. Undiagnosed new problem with uncertain prognosis? @ -No Drug Therapy requiring intensive monitoring for toxicity (Heparin, Nitro, Insulin, Cardizem)? @ -No Were any procedures done? @ -No Diagnosis/symptom? @ -Dysarthria Acute, or Chronic, or Acute on Chronic? @ -Acute Uncomplicated (without systemic symptoms) or Complicated (systemic symptoms)? @ -Complicated Side effects of treatment? @ -No Exacerbation, Progression, or Severe Exacerbation? @ -No Poses a threat to life or bodily function? How? (Chest pain, USA, ID, pneumonia, PE, COPD, DKA, ARF, appy, cholecystitis, CVA, Diverticulitis, Homicidal, Suicidal, threat to staff... and all critical care pts) @ -No Disposition Clinical Impression: Dysarthria Disposition: ADMITTED IP TO THIS HOSP Condition: Good Referrals: Domenic Allison MD [Primary Care Provider] - 1-2 days Time of Disposition: 18:43
[2023-07-03] MEDS ORDERED: HYDROmorphone 0.5 MG/0.5 ML SYRINGE IVP PRN (18:44)
[2023-07-03] MEDS ORDERED: ONDANSETRON 4 MG/2 ML VIAL IVP PRN (18:44)
[2023-07-03] MEDS ORDERED: NALOXONE 0.4 MG/ML 1 ML VIAL IV PRN (18:44)
[2023-07-03] MEDS: SODIUM CHLORIDE 0.9% 1,000 ML IV SCH (19:33)
--- NOTE | 2023-07-04 07:29 | P.HPIM ---
History of Present Illness This is a pleasant 83 years old female with multiple medical problems She was transferred from [facility] for consults of weakness and slurred speech She has history of multiple falls over the last year. Her PCP is Dr. Allison, she was taken baby aspirin 81 mg at home Monday she did not take her aspirin because she was busy and then Monday yesterday she started having speech difficulty, her speech still obvious dysarthric although she can find or spot with some hesitation. Also patient complaining of from weakness in the right arm and leg She denies headache or dizziness, no blurred vision. No chest pain or dyspnea. No abdominal pain or vomiting or diarrhea. No urinary complaints. She denies smoking alcohol or illicit drugs On reviewing the records from [facility] EKG showing sinus bradycardia with right bundle branch block Urine drug screen showing 2-4 highly 4 field wbc, is not suspicious of infection. Lactic acid within the reference range at 1.8 WBC 5.0, hemoglobin 14.8, platelet count 145 which is mildly low Creatinine 0.9, BUN is 14 Calcium 9.2, sodium 141, potassium 4.1, I and Erin 14 Liver enzymes AST, ALT and total bilirubin are not elevated at 18, 9 and 0.6 respectively Influenza A and type B, RSV, SARS (coronavirus) are and detected Troponin is within the reference range at 3.6, reference range is 0.0-17.5 CTA of the head proximal intracranial arterial occlusion or high-grade stenosis CTA of the neck showing no vascular acute findings, no left ICA stenosis, 45% RCA stenosis Review of Systems Review of systems CONSTITUTIONAL: No fever, no malaise, no fatigue. HEENT: No recent visual problems or hearing problems. Denied any sore throat. CARDIOVASCULAR: No orthopnea, PND, no palpitations, no syncope. PULMONARY: No shortness of breath, no cough, no hemoptysis. GASTROINTESTINAL: No diarrhea, no nausea, no vomiting, no abdominal pain. Normoactive bowel sounds. NEUROLOGICAL: No headaches, no weakness, no numbness. HEMATOLOGICAL: Denies any bleeding or petechiae. GENITOURINARY: Denies any burning micturition, frequency, or urgency. MUSCULOSKELETAL/RHEUMATOLOGICAL: Denies any joint pain, swelling, or any muscle pain. ENDOCRINE: Denies any polyuria or polydipsia. ROS unobtainable: due to endotracheal tube Past Medical History Past Medical History: No Reported History History of Any Multi-Drug Resistant Organisms: None Reported Past Surgical History: Appendectomy Past Psychological History: No Psychological Hx Reported Smoking Status: Never smoker Medications and Allergies Home Medications Medication Instructions Recorded Confirmed Type Biotin 300mcg 300 mcg PO DAILY 08/04/20 07/03/23 History Calcium Lactate 84mg 252 tab PO BID 08/04/20 07/03/23 History Gelatin 650mg 650 mg PO DAILY 08/04/20 07/03/23 History RX: Aspirin EC [Ecotrin Low Dose] 81 mg PO DAILY 08/04/20 07/03/23 History RX: Cholecalciferol (Vitamin D3) 125 mcg PO DAILY 08/04/20 07/03/23 History [Vitamin D3 (5000 Iu)] [place]-3 Fatty Acids [[place]-3] 1,000 mg PO BID 07/03/23 07/03/23 History RX: Vitamin K2 100 mcg PO DAILY 07/03/23 07/03/23 History Vitamin A Palmitate [Vitamin A-25 7,500 mcg PO DAILY 07/03/23 07/03/23 History (25,000 Units = 7500 MCG)] Vitamin E (Dl,Tocopheryl Acet) 400 unit PO BID 07/03/23 07/03/23 History [Vitamin E (400 Iu = 180 mg)] Allergies Allergy/AdvReac Type Severity Reaction Status Date / Time No Known Allergies Allergy Verified 07/03/23 19:14 Physical Exam Vitals: Vital Signs Temp Pulse Resp BP Pulse Ox 07/04/23 04:00 62 16 157/82 96 07/04/23 02:30 54 L 16 153/77 96 07/03/23 22:30 98.5 F 56 L 16 186/86 96 07/03/23 19:31 61 18 166/79 97 07/03/23 17:20 99.1 F 64 18 161/90 97 Intake and Output 07/03/23 07/04/23 07/04/23 22:59 06:59 14:59 Other: # Voids 2 Weight 65.771 kg GENERAL: The patient is alert and oriented x3, not in any acute distress. Well developed, well nourished. HEENT: Pupils are round and equally reacting to light. EOMI. No scleral icterus. No conjunctival pallor. Normocephalic, atraumatic. No pharyngeal erythema. No thyromegaly. CARDIOVASCULAR: S1 and S2 present. No murmurs, rubs, or gallops. PULMONARY: Chest is clear to auscultation, no wheezing , no crackles. ABDOMEN: Soft, nontender, nondistended, normoactive bowel sounds. No palpable organomegaly. MUSCULOSKELETAL: No joint swelling or deformity. EXTREMITIES: No cyanosis, clubbing, or pedal edema. -NEUROLOGICAL: Gross neurological examination of the cranial nerves shows dysarthria. Patient has weaker and group and elbow extension on the right side. Right leg weakness/5. Sensation intact. Meningeal signs are absent. On the right side is positive SKIN: No rashes. no petechiae. 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 Continue same treatment. Continue with symptomatic treatment. Resume home medication. Monitor labs and vitals. DVT and GI prophylaxis. Further recommendations as per clinical course of the patient DVT prophylaxis: Subcutaneous heparin GI Prophylaxis: Pepcid PT/OT: Pending Prognosis is guarded
[2023-07-04] MEDS: ASPIRIN 81 MG PO SCH (08:35)
[2023-07-04] MEDS: HEPARIN SODIUM,PORCINE 5,000 UNIT/ML 1 ML VIAL SQ SCH ×2 (08:35→21:50)
[2023-07-04] MEDS: FAMOTIDINE 20 MG/2 ML VIAL IV SCH ×2 (08:35→21:50)
[2023-07-04] MEDS: CLOPIDOGREL 75 MG TAB PO SCH (08:35)
--- NOTE | 2023-07-04 09:54 | US ---
EXAMINATION TYPE: US carotid duplex BILAT DATE OF EXAM: 07/04/2023 COMPARISON: CTA head neck 07/03/2023 CLINICAL INDICATION: Female, 83 years old with history of stroke; Right sided weakness TECHNIQUE: Carotid duplex ultrasound examination. Indirect Doppler criteria was utilized. FINDINGS: EXAM MEASUREMENTS: RIGHT: Peak Systolic Velocity (PSV) cm/sec ----- Right CCA: 90.9 ----- Right ICA: 194 ----- Right ECA: 101 ICA/CCA ratio: 2.13 RIGHT: End Diastole cm/sec ----- Right CCA: 21.4 ----- Right ICA: 54.7 ----- Right ECA: 3.3 LEFT: Peak Systolic Velocity (PSV) cm/sec ----- Left CCA: 107 ----- Left ICA: 141 ----- Left ECA: 126 ICA/CCA ratio: 1.32 LEFT: End Diastole cm/sec ----- Left CCA: 22.1 ----- Left ICA: 35.2 ----- Left ECA: 11.5 VERTEBRALS (direction of flow): Right Vertebral: Antegrade Left Vertebral: Antegrade Rhythm: Normal HAND BRIM IRONER NOTES: Mild plaque bilateral bifurcations. Tortuous ICA distally bilaterally. IMPRESSION: Mild atherosclerotic plaque in the bilateral carotid bifurcations. Approximately 50-69% stenosis at t he origin of the right internal carotid artery with less than 50% stenosis of the origin of the left internal carotid artery. Criteria for Assigning % of Stenosis / Diameter reduction (Estimation based on the indirect measurements of the internal carotid artery velocities (ICA PSV). 1. Normal (no stenosis)=ICA PSV < 125 cm/s: ratio < 2.0: ICA EDV<40 cm/s. 2. Less than 50% stenosis=ICA PSV < 125 cm/s: ratio < 2.0: ICA EDV<40 cm/s. 3. 50 to 69% stenosis=ICA PSV of 125 to 230 cm/s: ration 2.0 ? 4.0: ICA EDV 40-100 cm/s. 4. Greater than 70% stenosis to near occlusion= ICA PSV > 230 cm/s: ratio > 4.0: ICA EDV > 100 cm/s. 5. Near occlusion= ICA PSV velocities may be low or undetectable: variable ratio and ICA EDV. 6. Total occlusion=unable to detect flow.
[2023-07-04] MEDS: SODIUM CHLORIDE 0.9% 1,000 ML IV SCH ×2 (10:42→21:51)
[2023-07-04] MEDS ORDERED: CLOPIDOGREL 75 MG TAB PO STA (13:29)
--- NOTE | 2023-07-04 14:49 | P.CNNES ---
History of Present Illness Consult date: 07/04/23 Requesting physician: Casey Zaman Reason for Consult: CVA History of Present Illness: Patient is a 83-year-old right-handed female, otherwise healthy came to the hospital yesterday at 5:16 PM by ambulance as a transfer from [facility] for neurological evaluation for possible stroke. Patient states that yesterday morning she woke up at 6 AM and was feeling fine. Earlier during the night, she woke up at 4 AM when she wanted to go to the bathroom. She was able to go to the bathroom, but coming back she has to struggle to get back to the bed. After she came back to her bedroom, she slept. When she woke up at 6 AM, she was feeling perfectly fine. She was making breakfast at around 8 AM when she suddenly felt weak all over. She felt that she will fall. She hand on to some furniture, and lowered herself down to the floor. She was not able to get herself up. She also vomited. The called the ambulance and she was taken to [facility]. Her vitals on arrival was 174/105, pulse rate 59, respiration 18, saturation 98%. According to the report from [facility], there was no focal weakness noticed and patient strength was equal bilaterally with NIH stroke scale of 1 because of slurred speech. Patient was considered not a candidate for TPA. Patient underwent testing as mentioned below. While in the ER, it was noted that patient was not able to stand up unassisted, with some evidence of ataxia. She was given aspirin 81 mg. She was transferred to [facility] for neurological evaluation. Vital signs on arrival blood pressure 161/90, pulse rate 64, temperature 99.1. Blood test shows normal TSH, hemoglobin A1c 7.0. Apparently ED staff (Dr Jacobsen) evaluated the patient, and according to the ED report, her NIH stroke scale was 2 with slight dysarthria and facial droop. Patient was not a candidate for TPA, as she was outside the window. Patient's family mentions that sometimes overnight, her symptoms Patient denies any history of hypertension, cholesterol or diabetes. She has never smoked, and drinks alcohol occasionally once or twice a year. She has not seen a primary physician for over 3 years. Home medications include vitamin K, vitamin E4 100 units twice a , fish oil, aspirin 81 mg, vitamin D, gelatin, biotin and calcium. Patient claims that she does take aspirin 81 mg daily for last several years, recommended by her physician. She rarely misses taking it. Records from [facility]: EKG shows sinus bradycardia with right bundle branch block, UA is negative, CBC is normal, renal functions, hepatic panel, electrolytes are normal. RSV PCR negative, influenza and coronal virus PCR negative. Troponin negative. CTA head and neck report as per the plan section. It was reported the patient came to the hospital because of generalized weakness symptoms since the morning. No numbness tingling focal weakness. Her vital signs on arrival was 174/105 below. Patient has been on aspirin 81 mg daily for about 7 years. Takes it regularly with occasional missing. Review of Systems Constitutional: Reports weight loss, Denies chills (Feeling cold), Denies fever Eyes: denies blurred vision, denies diplopia, denies pain Ears: deny: decreased hearing, ear discharge Ears, nose, mouth and throat: Reports post-nasal drip, Denies headache, Denies nasal congestion, Denies sore throat Cardiovascular: Denies chest pain, Denies shortness of breath Respiratory: Denies cough, Denies excessive sputum Gastrointestinal: Reports vomiting (Twice yesterday), Denies abdominal pain, Denies diarrhea, Denies nausea Genitourinary: Denies dysuria, Denies hematuria Musculoskeletal: Denies low back pain, Denies myalgias, Denies neck pain Integumentary: Denies pruritus, Denies rash Neurological: Reports as per HPI Psychiatric: Denies anxiety, Denies depression Endocrine: Reports weight change, Denies fatigue Hematologic/Lymphatic: Reports easy bruising, Denies easy bleeding Past Medical History Past Medical History: No Reported History History of Any Multi-Drug Resistant Organisms: None Reported Past Surgical History: Appendectomy Past Psychological History: No Psychological Hx Reported Smoking Status: Never smoker Medications and Allergies Home Medications Medication Instructions Recorded Confirmed Type Aspirin EC [Ecotrin Low Dose] 81 mg PO DAILY 08/04/20 07/03/23 History Biotin 300mcg 300 mcg PO DAILY 08/04/20 07/03/23 History Calcium Lactate 84mg 252 tab PO BID 08/04/20 07/03/23 History Cholecalciferol (Vitamin D3) 125 mcg PO DAILY 08/04/20 07/03/23 History [Vitamin D3 (5000 Iu)] Gelatin 650mg 650 mg PO DAILY 08/04/20 07/03/23 History [place]-3 Fatty Acids [[place]-3] 1,000 mg PO BID 07/03/23 07/03/23 History Vitamin A Palmitate [Vitamin A-25 7,500 mcg PO DAILY 07/03/23 07/03/23 History (25,000 Units = 7500 MCG)] Vitamin E (Dl,Tocopheryl Acet) 400 unit PO BID 07/03/23 07/03/23 History [Vitamin E (400 Iu = 180 mg)] Vitamin K2 100 mcg PO DAILY 07/03/23 07/03/23 History Allergies Allergy/AdvReac Type Severity Reaction Status Date / Time No Known Allergies Allergy Verified 07/03/23 19:14 Physical Examination - Vital Signs Vital Signs: Vital Signs Temp Pulse Pulse Resp BP BP Pulse Ox 07/04/23 07:28 64 16 178/85 97 07/04/23 07:00 56 L 18 166/97 95 07/04/23 04:00 62 16 157/82 96 07/04/23 02:30 54 L 16 153/77 96 07/03/23 22:30 98.5 F 56 L 16 186/86 96 07/03/23 19:31 61 18 166/79 97 07/03/23 17:20 99.1 F 64 18 161/90 97 Intake and Output 07/03/23 07/04/23 07/04/23 22:59 06:59 14:59 Intake Total 118 Balance 118 Intake: Oral 118 Other: Voiding Method Bedside Commode # Voids 2 Weight 65.771 kg Patient is an elderly female, very pleasant, in no acute distress. Patient is alert awake oriented to time place and person. Speech is mild to moderately dysarthric and language functions are normal. Patient can name and repeat very well. Attention, concentration and fund of knowledge is adequate. On cranial nerve examination, pupils are equal, round and reacting to light, visual hays are full on confrontation, with no neglect on double simultaneous stimulation. Extraocular muscles are intact with no nystagmus. Patient has right facial weakness, central type. Her tongue protrudes to the midline. Palatal elevation and sensation normal, hearing and shoulder shrug normal, facial sensation normal. On muscle strength testing, there is right pronator drift, and it droops about 30. The muscle strength is completely normal on the left side in left arm and left leg. In the right arm, deltoid 5-, biceps 5-, triceps 5-, bottle blower 4-. In the right lower limb, her hip flexion 4+, ankle dorsiflexion 4+. Deep tendon reflexes are symmetric 2+ at the biceps, 2+ brachioradialis, 3 at the knees, and plantar is clearly upgoing on the right and downgoing on the left. Sensory to touch is equal with no neglect on double simultaneous stimulation. Cerebellar function showed ataxia for [id number] testing in the right upper limb but not the left. No dysdiadochokinesia. No ataxia for [id number] testing on either side. Tone and bulk of muscles normal. Gait deferred.. On general examination, there is no carotid bruit or murmur, S1-S2 audible. Chest is clear on consultation. Abdomen is soft nontender. No organomegaly, bowel sounds present. Peripheral pulses are present. No peripheral edema. Results - Laboratory Findings CBC and BMP: 07/05/23 11:59 07/05/23 11:59 Abnormal Lab Findings: Abnormal Labs 07/04/23 08:04 Hemoglobin A1c 7.0 H Assessment and Plan Assessment: * Acute ischemic stroke, with dysarthria and right hemiparesis. Rule out embolic source, rule out lacunar stroke from small vessel disease. Current NIH stroke scale is 5. * Hypertension, not treated * New onset diabetes * Excessive stressors. Plan: * Patient has presented with an acute stroke, with right hemiparesis. Patient did not receive TPA at [facility], as her initial NIH stroke scale was 1. Her symptoms have slightly got worse overnight with slurred speech and right-sided weakness. * MRI of the brain without contrast, evaluate for acute CVA * 2-D echo with bubble study to rule out PFO * CTA head: No proximal intracranial arterial occlusion or high-grade stenosis seen. * CTA of the neck: No acute vascular findings in the neck. Mild, borderline moderate approximate 45% right ICA stenosis. 0% left ICA stenosis. The vertebral arteries are patent without stenosis. The cervical arteries demonstrated multifocal luminal irregularity consistent with atherosclerosis versus fibromuscular dysplasia. * Carotid Doppler, revealed mild atherosclerotic plaque in the bilateral carotid bifurcations. Approximately 50-69% stenosis at the origin of the right ICA with less than 50% stenosis of the origin of left ICA. Antegrade flow in both vertebral arteries. * Fasting a.m. lipid panel * Hemoglobin A1c 7.0. * Permissive hypertension for next 24-48 hours * Patient was on aspirin 81 mg daily at home. Patient started on Plavix 75 mg. Patient believes her symptoms are slightly worse overnight, therefore we will give her a loading dose of Plavix 225 mg 1 dose. Continue dual antiplatelet medication. * Neuro checks. * Telemetry monitoring rule out any arrhythmia * PT, OT, speech therapy * DVT prophylaxis: Heparin 5000 units subcu every 8 hours * Neurology will continue to follow. Thank you for the consult. Time with Patient: Greater than 30
--- NOTE | 2023-07-04 15:58 | CT ---
EXAMINATION TYPE: CT brain wo con DATE OF EXAM: 07/04/2023 COMPARISON: None HISTORY: poss CVA CT DLP: 1030.[address] of the brain was performed. The ventricles, basal cisterns and sulci overlying the cerebral convexities demonstrate mild enlargem ent. There is no evidence for intracranial hemorrhage or sulcal effacement. There is decreased attenuation about the periventricular white matter and deep white matter of both c erebral hemispheres, compatible with chronic small vessel ischemia. Differential diagnosis does inclu de demyelination. No mass effects are seen.No midline shift. Osseous calvarium is intact. If symptoms persist consider MRI. IMPRESSION: 1. Age related atrophic and chronic small vessel ischemic change without acute intracranial process s een at this time.
[2023-07-05] MEDS ORDERED: CYANOCOBALAMIN 1,000 MCG/ML 1 ML VIAL IM ONE (06:51)
[2023-07-05] MEDS: ASPIRIN 81 MG PO SCH (09:51)
[2023-07-05] MEDS: CLOPIDOGREL 75 MG TAB PO SCH (09:51)
[2023-07-05] MEDS: HEPARIN SODIUM,PORCINE 5,000 UNIT/ML 1 ML VIAL SQ SCH ×2 (09:51→20:15)
[2023-07-05] MEDS: FAMOTIDINE 20 MG/2 ML VIAL IV SCH ×2 (09:52→18:17)
--- NOTE | 2023-07-05 10:38 | CA ---
Transthoracic Echo Report Name: Irma Pavon Age: 83 Gender: F : 1940 Exam Date: 07/05/2023 08:39 Exam Location: [facility] Ht (in): 64 Wt (lb): 145 Ordering Physician: Lorene Stein MD Attending/Referring Phys: Clay Miner Sheila Watt RDCS Procedure CPT: Indications: acute CVA Cardiac Hx: Technical Quality: Good Contrast 1: Agitated Saline Total Dose (mL): 9 Contrast 2: Total Dose (mL): MEASUREMENTS (Male / Female) Normal Values 2D ECHO LV Diastolic Diameter PLAX 4.6 cm 4.2 - 5.9 / 3.9 - 5.3 cm LV Systolic Diameter PLAX 2.9 cm IVS Diastolic Thickness 1.0 cm 0.6 - 1.0 / 0.6 - 0.9 cm LVPW Diastolic Thickness 1.0 cm 0.6 - 1.0 / 0.6 - 0.9 cm LV Relative Wall Thickness 0.4 RV Internal Dim ED PLAX 3.1 cm LA Systolic Diameter LX 3.7 cm 3.0 - 4.0 / 2.7 - 3.8 cm LV Diastolic Volume MOD 4C 76.8 cm??? LV Systolic Volume MOD 4C 29.0 cm??? LV Ejection Fraction MOD 4C 62.2 % LV Cardiac Index MOD 4C 1542.9 cm???/min???m??? LV Diastolic Length 4C 7.8 cm LV Systolic Length 4C 6.1 cm LV Diastolic Volume MOD 2C 57.2 cm??? LV Systolic Volume MOD 2C 21.9 cm??? LV Ejection Fraction MOD 2C 61.8 % LV Cardiac Index MOD 2C 1142.1 cm???/min???m??? LV Diastolic Length 2C 7.2 cm LV Systolic Length 2C 5.7 cm LA Volume 45.5 cm??? 18 - 58 / 22 - 52 cm??? LA Volume Index 26.2 cm???/m??? 16 - 28 cm???/m??? M-MODE Aortic Root Diameter MM 3.4 cm MV E Point Septal Separation 0.5 cm AV Cusp Separation MM 1.9 cm DOPPLER AV Peak Velocity 124.9 cm/s AV Peak Gradient 6.2 mmHg MV Area PHT 2.0 cm??? Mitral E Point Velocity 90.1 cm/s Mitral A Point Velocity 113.8 cm/s Mitral E to A Ratio 0.8 MV Deceleration Time 376.4 ms MV E' Velocity 7.1 cm/s Mitral E to MV E' Ratio 12.7 TR Peak Velocity 209.5 cm/s TR Peak Gradient 17.6 mmHg Right Ventricular Systolic Press 22.6 mmHg FINDINGS Left Ventricle Left ventricular ejection fraction is estimated at 55-60 %. Left ventricular cavity size normal. Left ventricular wall thickness normal. Right Ventricle Normal right ventricular size. Right ventricular systolic pressure within normal limits. Right Atrium Normal right atrial size. Negative agitated saline bubble study for right to left shunt. Left Atrium Normal left atrial size. Mitral Valve Structurally normal mitral valve. No mitral stenosis, regurgitation or prolapse. Aortic Valve Trileaflet aortic valve. No aortic valve stenosis or regurgitation. Tricuspid Valve Structurally normal tricuspid valve. Trace to mild tricuspid regurgitation. Pulmonic Valve Structurally normal pulmonic valve. No pulmonic regurgitation. Pericardium No pericardial effusion. Aorta Normal size aortic root and proximal ascending aorta. CONCLUSIONS Normal LV size and systolic function. No significant abnormality in the Doppler exam. Bubble study is negative for shunt. No pericardial effusion Previewed by: Dr. Anthony Ramon MD (Electronically Signed) Final Date: 05 July 2023 10:37
--- NOTE | 2023-07-05 10:52 | P.PN ---
Subjective This is a pleasant 83 years old female with multiple medical problems She was transferred from [facility] for consults of weakness and sl urred speech She has history of multiple falls over the last year. Her PCP is Dr. Allison, she was taken baby aspirin 81 mg at home Monday she did not take her aspirin because she was busy and then Monday yesterday she started having speech difficulty, her speech still obvious dysarthric although she can find or spot with some hesitation. Also patient complaining of from weakness in the right arm and leg She denies headache or dizziness, no blurred vision. No chest pain or dyspnea. No abdominal pain or vomiting or diarrhea. No urinary complaints. She denies smoking alcohol or illicit drugs On reviewing the records from [facility] EKG showing sinus bradycardia with right bundle branch block Urine drug screen showing 2-4 highly 4 field wbc, is not suspicious of infection. Lactic acid within the reference range at 1.8 WBC 5.0, hemoglobin 14.8, platelet count 145 which is mildly low Creatinine 0.9, BUN is 14 Calcium 9.2, sodium 141, potassium 4.1, I and Erin 14 Liver enzymes AST, ALT and total bilirubin are not elevated at 18, 9 and 0.6 respectively Influenza A and type B, RSV, SARS (coronavirus) are and detected Troponin is within the reference range at 3.6, reference range is 0.0-17.5 CTA of the head proximal intracranial arterial occlusion or high-grade stenosis CTA of the neck showing no vascular acute findings, no left ICA stenosis, 45% RCA stenosis 07/05/2023 Patient still has dysarthria and right hemiparesis Blood pressure elevated for permissive hypertension Hemoglobin A1c 7, patient informed she has diabetes and she agrees to start medication pending and then we will start her on metformin Vitamin B12: 348 which is borderline low level. We don't replacement with one- time dose of vitamin B12 injection and then continue oral dose tomorrow MRI of the brain pending Consult PMR Review of systems CONSTITUTIONAL: No fever, no malaise, no fatigue. HEENT: No recent visual problems or hearing problems. Denied any sore throat. CARDIOVASCULAR: No orthopnea, PND, no palpitations, no syncope. PULMONARY: No shortness of breath, no cough, no hemoptysis. GASTROINTESTINAL: No diarrhea, no nausea, no vomiting, no abdominal pain. Normoactive bowel sounds. HEMATOLOGICAL: Denies any bleeding or petechiae. GENITOURINARY: Denies any burning micturition, frequency, or urgency. MUSCULOSKELETAL/RHEUMATOLOGICAL: Denies any joint pain, swelling, or any muscle pain. ENDOCRINE: Denies any polyuria or polydipsia. Active Medications Generic Name Dose Route Start Last Admin Trade Name Freq PRN Reason Stop Dose Admin Aspirin 81 mg 07/04/23 09:00 07/05/23 09:51 Aspirin 81 Mg PO 81 mg DAILY ABDIRAHMAN Administration Clopidogrel Bisulfate 75 mg 07/04/23 09:00 07/05/23 09:51 Clopidogrel 75 Mg Tab PO 75 mg DAILY ABDIRAHMAN Administration Cyanocobalamin 1,000 mcg 07/06/23 09:00 Cyanocobalamin 500 Mcg Tab PO DAILY ABDIRAHMAN Famotidine 20 mg 07/04/23 09:00 07/05/23 09:52 Famotidine 20 Mg/2 Ml Vial IV 20 mg Q12HR ABDIRAHMAN Administration Heparin Sodium (Porcine) 5,000 unit 07/04/23 09:00 07/05/23 09:51 Heparin Sodium,Porcine 5,000 Unit/Ml 1 Ml Vial SQ 5,000 unit Q12HR ABDIRAHMAN Administration Hydromorphone HCl 0.5 mg 07/03/23 18:44 Hydromorphone 0.5 Mg/0.5 Ml Syringe IVP Q3HR PRN Moderate Pain (Scale 4 to 6) Sodium Chloride 1,000 mls @ 75 mls/hr 07/03/23 18:45 07/04/23 21:51 Saline 0.9% IV 75 mls/hr .[id number] ABDIRAHMAN Administration Naloxone HCl 0.2 mg 07/03/23 18:44 Naloxone 0.4 Mg/Ml 1 Ml Vial IV Q2M PRN Opioid Reversal Ondansetron HCl 4 mg 07/03/23 18:44 Ondansetron 4 Mg/2 Ml Vial IVP Q8HR PRN Nausea And Vomiting Objective - Vital Signs Vital signs: Vital Signs Temp 97.7 F 07/05/23 10:00 Pulse 74 07/05/23 10:00 Resp 16 07/05/23 10:00 BP 157/72 07/05/23 10:00 Pulse Ox 98 07/05/23 10:00 FiO2 Intake & Output 07/04/23 07/05/23 07/05/23 18:59 06:59 18:59 Intake Total 236 Balance 236 Intake: Oral 236 Other: Voiding Method Bedside Commode Bedside Commode Bedside Commode # Voids 1 1 1 # Bowel Movements 1 - Exam GENERAL: The patient is alert and oriented x3, not in any acute distress. Well developed, well nourished. HEENT: Pupils are round and equally reacting to light. EOMI. No scleral icterus. No conjunctival pallor. Normocephalic, atraumatic. No pharyngeal erythema. No thyromegaly. CARDIOVASCULAR: S1 and S2 present. No murmurs, rubs, or gallops. PULMONARY: Chest is clear to auscultation, no wheezing , no crackles. ABDOMEN: Soft, nontender, nondistended, normoactive bowel sounds. No palpable organomegaly. MUSCULOSKELETAL: No joint swelling or deformity. EXTREMITIES: No cyanosis, clubbing, or pedal edema. -NEUROLOGICAL: Dysarthria with mild expressive aphasia, rest of cranial nerves are grossly intact. Right-sided weakness with difficulty moving her right. upper and lower extremities 2/5, left side motor exams 5/5. Sensation is intact. SKIN: No rashes. no petechiae. - Labs Labs: Abnormal Lab Results - Last 24 Hours (Table) 07/04/23 Range/Units 08:04 Hemoglobin A1c 7.0 H (<=6.0) % Assessment and Plan Assessment: Periods of slurred speech, dysarthria and right hemiparesis suspicious for acute stroke, precipitated by nonadherence to her medication of aspirin New-onset diabetes mellitus Borderline low vitamin B12 been replaced Generalized weakness associated with recurrent falls at home Right internal carotid artery stenosis, mild 45% per CTA Plan: Continue with aspirin, Plavix is added Neurology consult Carotid Doppler MRI of the brain Start vitamin B12 replacement therapy Start metformin PMR consult Speech therapy evaluation for swallowing Labs and medication were reviewed.. Continue same treatment. Continue with symptomatic treatment. Resume home medication. Monitor labs and vitals. DVT and GI prophylaxis. Further recommendations as per clinical course of the patient DVT prophylaxis: Subcutaneous heparin GI Prophylaxis: Pepcid PT/OT: Pending Prognosis is guarded
--- NOTE | 2023-07-05 10:59 | MR ---
EXAMINATION TYPE: MR brain wo con DATE OF EXAM: 07/05/2023 COMPARISON: CT brain 07/04/2023 HISTORY: CVA, dysarthria. CONTRAST: Performed utilizing 0 mL intravenous Gadavist gadolinium contrast. TECHNIQUE: Multiplanar, multiecho imaging on a 3.0 Neetu magnet is performed through the brain. Stud y is performed within 24 hours of arrival to the hospital. The craniovertebral junction is normal. The pituitary is normal. Diffusion-weighted imaging is performed. There is hyperintensity within the left brainstem, example image series 303 image 88, compatible with an acute ischemic change. This is hypointense on T1-weight ed images and slightly hyperintense on T2-weighted images. Some mild periventricular white matter hyperintensity is present, likely on the basis of chronic whit e matter ischemic changes. Couple of subcortical punctate areas are within the parietal lobes bilater ally are nonspecific but could be related to microvascular ischemic change. Ventricles and sulci are appropriate for the patient age. IMPRESSION: 1. Acute ischemic change left medial brainstem at the level kellie.
[2023-07-05 12:13] LABS: Basophils % (A) 0 %; Eosinophils # (A) 0.1 k/uL (0-0.7); Eosinophils % (A) 1 %; HGB 14.4 gm/dL (11.4-16.0); Lymphocytes # (A) 0.8 k/uL (1.0-4.8); Lymphocytes % (A) 11 %; MCH 29.9 pg (25.0-35.0); MCHC 33.5 g/dL (31.0-37.0); MCV 89.4 fL (80.0-100.0); Mean Platelet Volume 8.7; Monocytes # (A) 0.3 k/uL (0-1.0); Monocytes % (A) 4 %; Neutrophils # (A) 6.4 k/uL (1.3-7.7); Neutrophils % (A) 83 %; Platelet Count 128 k/uL (150-450); RBC 4.81 m/uL (3.80-5.40); RDW 13.1 % (11.5-15.5); WBC 7.6 k/uL (3.8-10.6)
[2023-07-05 12:27] LABS: Partial Thromboplastin Time 25.1 sec (22.0-30.0); Prothrombin Time 10.8 sec (10.0-12.5)
[2023-07-05 12:54] LABS: ALT 16 U/L (4-34); AST 27 U/L (14-36); African American GFR (CKD) >90 (>60 ml/min/1.73 sqM); Albumin 3.6 g/dL (3.5-5.0); Alkaline Phosphatase 60 U/L (38-126); Anion Gap 11 mmol/L; Bilirubin, Delta 0.1 mg/dL (0.0-0.2); Bilirubin,Unconjugated 0.4 mg/dL (0.0-1.1); Blood Urea Nitrogen 13 mg/dL (7-17); Calcium 8.6 mg/dL (8.4-10.2); Carbon Dioxide 23 mmol/L (22-30); Chloride 105 mmol/L (98-107); Glucose 168 mg/dL (74-99); Magnesium 1.6 mg/dL (1.6-2.3); Non-African American GFR(CKD) 83 (>60 ml/min/1.73 sqM); Potassium 3.7 mmol/L (3.5-5.1); Sodium 139 mmol/L (137-145); Total Bilirubin 0.5 mg/dL (0.2-1.3); Total Protein 6.3 g/dL (6.3-8.2)
--- NOTE | 2023-07-05 17:00 | P.PN ---
Subjective Progress Note Date: 07/05/23 Patient was seen for a follow-up. Patient's daughter and son, [id number] and patient's were present today. Patient's speech is improved, but her right side appears to be slightly worse. Denies any numbness or tingling. Objective - Vital Signs Vital signs: Vital Signs Temp 97.7 F 07/05/23 10:00 Pulse 70 07/05/23 12:58 Resp 18 07/05/23 12:58 BP 174/76 07/05/23 12:58 Pulse Ox 97 07/05/23 12:58 FiO2 Intake & Output 07/04/23 07/05/23 07/05/23 18:59 06:59 18:59 Intake Total 236 Balance 236 Intake: Oral 236 Other: Voiding Method Bedside Commode Bedside Commode Bedside Commode # Voids 1 1 1 # Bowel Movements 1 - Exam Patient's mental status is normal. Her speech is mildly dysarthric, better than yesterday. No aphasia. Cranial nerves significant for right facial droop, central type. Other cranial nerves are all normal. On muscle strength testing, patient has right pronator drift, and it droops about 70, but does not hit the bed. On muscle strength testing (right/left) deltoid 4/5, triceps 4/5, biceps 4/5, strip picker 2-3/5, hip flexion 4-4-/5, ankle dorsiflexion 4-/5. Sensory to touch is equal with no neglect. Cerebellar functions revealed ataxia for [id number] testing in the right arm, but not in the leg. 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 Mechanism of stroke likely from small vessel disease. Current NIH stroke scale is still 5, but the right side appears slightly weaker than yesterday. * Hypertension, not treated * New onset diabetes * Excessive stressors. Plan: * Patient has presented with an acute stroke, with right hemiparesis. Patient did not receive TPA at [facility], as her initial NIH stroke scale was 1. Her symptoms have slightly got worse overnight with slurred speech and right-sided weakness. * MRI of the brain without contrast revealed acute ischemic stroke left medial brainstem at the level of kellie. I personally reviewed MRI, agree with the findings. * 2-D echo with bubble study revealed normal left-ventricular size and systolic function, with EF 55-60%. Left atrial size is normal. Bubble study was negative for any shunt. * CTA head: No proximal intracranial arterial occlusion or high-grade stenosis seen. * CTA of the neck: No acute vascular findings in the neck. Mild, borderline moderate approximate 45% right ICA stenosis. 0% left ICA stenosis. The vertebral arteries are patent without stenosis. The cervical arteries demonstrated multifocal luminal irregularity consistent with atherosclerosis versus fibromuscular dysplasia. * Carotid Doppler, revealed mild atherosclerotic plaque in the bilateral carotid bifurcations. Approximately 50-69% stenosis at the origin of the right ICA with less than 50% stenosis of the origin of left ICA. Antegrade flow in both vertebral arteries. * Patient's stroke involves the brainstem, therefore the right ICA stenosis is clinically asymptomatic at this time. Recommend follow-up ultrasound every 6 months. * Fasting a.m. lipid panel still pending. * Hemoglobin A1c 7.0. Recommend healthy lifestyles, dietary modification. Follow hemoglobin A1c in 3-6 months. * B12 340. Patient given vitamin B12 1000 g IM 1 dose and agree with continuing B12 1000 g orally daily thereafter. TSH normal. * Permissive hypertension for another 24-48 hours. Patient very high risk of worsening hemiparesis because of the extent of pontine ischemia noted on the MRI brain. * Patient was on aspirin 81 mg daily at home. Patient has failed aspirin regimen. Patient started on Plavix 75 mg daily. Continue dual antiplatelet medication for 21 days, then stop aspirin and continue Plavix indefinitely. * Agree with starting Pepcid for gastric ulcer prophylaxis. * Neuro checks. * Telemetry monitoring rule out any arrhythmia * PT, OT, speech therapy * DVT prophylaxis: Heparin 5000 units subcu every 12 hours * Consult physical medicine and rehabilitation for possible inpatient rehabilitation. * Discussed with family in detail.
[2023-07-05] MEDS: SODIUM CHLORIDE 0.9% 1,000 ML IV SCH ×2 (17:57→20:15)
[2023-07-05 22:09] LABS: Chol/HDL Ratio 3.44 Ratio; LDL Cholesterol,Calculated 135.2 mg/dL (0.0-131.0)
[2023-07-06] MEDS: metFORMIN 500 MG TAB PO SCH ×2 (06:42→17:15)
--- NOTE | 2023-07-06 08:11 | P.PN ---
Subjective This is a pleasant 83 years old female with multiple medical problems She was transferred from [facility] for consults of weakness and sl urred speech She has history of multiple falls over the last year. Her PCP is Dr. Allison, she was taken baby aspirin 81 mg at home Monday she did not take her aspirin because she was busy and then Monday yesterday she started having speech difficulty, her speech still obvious dysarthric although she can find or spot with some hesitation. Also patient complaining of from weakness in the right arm and leg She denies headache or dizziness, no blurred vision. No chest pain or dyspnea. No abdominal pain or vomiting or diarrhea. No urinary complaints. She denies smoking alcohol or illicit drugs On reviewing the records from [facility] EKG showing sinus bradycardia with right bundle branch block Urine drug screen showing 2-4 highly 4 field wbc, is not suspicious of infection. Lactic acid within the reference range at 1.8 WBC 5.0, hemoglobin 14.8, platelet count 145 which is mildly low Creatinine 0.9, BUN is 14 Calcium 9.2, sodium 141, potassium 4.1, I and Erin 14 Liver enzymes AST, ALT and total bilirubin are not elevated at 18, 9 and 0.6 respectively Influenza A and type B, RSV, SARS (coronavirus) are and detected Troponin is within the reference range at 3.6, reference range is 0.0-17.5 CTA of the head proximal intracranial arterial occlusion or high-grade stenosis CTA of the neck showing no vascular acute findings, no left ICA stenosis, 45% RCA stenosis 07/05/2023 Patient still has dysarthria and right hemiparesis Blood pressure elevated for permissive hypertension Hemoglobin A1c 7, patient informed she has diabetes and she agrees to start medication pending and then we will start her on metformin Vitamin B12: 348 which is borderline low level. We don't replacement with one- time dose of vitamin B12 injection and then continue oral dose tomorrow MRI of the brain pending Consult PMR 07/06/2023 patient still complaining from patient right hemiplegia more in the right leg than the right arm, she says her right leg she can move it and bended little bit compared to yesterday and the right arm is SO very little better this morning, she can hardly move both arm and leg. Her speech is improving although not normal. No other new complaints. The brain showing: Acute ischemic change left medial brain stem of the level of the kellie, MRI reviewed by myself Patient remains on aspirin and Plavix, metformin vitamin B12 spills PMR consulted and patient may go to inpatient rehab. Objective - Vital Signs Vital signs: Vital Signs Temp 97.9 F 07/06/23 04:00 Pulse 56 L 07/06/23 04:00 Resp 18 07/06/23 04:00 BP 160/79 07/06/23 04:00 Pulse Ox 97 07/06/23 04:00 FiO2 Intake & Output 07/05/23 07/06/23 07/06/23 18:59 06:59 18:59 Intake Total 240 Balance 240 Intake: Oral 240 Other: Voiding Method Bedside Commode Bedside Commode # Voids 3 # Bowel Movements 4 1 - Exam GENERAL: The patient is alert and oriented x3, not in any acute distress. Well developed, well nourished. HEENT: Pupils are round and equally reacting to light. EOMI. No scleral icterus. No conjunctival pallor. Normocephalic, atraumatic. No pharyngeal erythema. No thyromegaly. CARDIOVASCULAR: S1 and S2 present. No murmurs, rubs, or gallops. PULMONARY: Chest is clear to auscultation, no wheezing , no crackles. ABDOMEN: Soft, nontender, nondistended, normoactive bowel sounds. No palpable organomegaly. MUSCULOSKELETAL: No joint swelling or deformity. EXTREMITIES: No cyanosis, clubbing, or pedal edema. -NEUROLOGICAL: Dysarthria with mild expressive aphasia, rest of cranial nerves are grossly intact. Right-sided weakness with difficulty moving her right. upper and lower extremities 2/5, left side motor exams 5/5. Sensation is intact. SKIN: No rashes. no petechiae. - Labs CBC & Chem 7: 07/05/23 11:59 07/05/23 11:59 Labs: Abnormal Lab Results - Last 24 Hours (Table) 07/05/23 07/05/23 Range/Units 11: 11:59 Plt Count 128 L (150-450) k/uL Lymphocytes # 0.8 L (1.0-4.8) k/uL Glucose 168 H (74-99) mg/dL Cholesterol 224.00 H (0.00-200.00) mg/dL LDL Cholesterol, Calc 135.2 H (0.0-131.0) mg/dL HDL Cholesterol 65.20 H (40.00-60.00) mg/dL Assessment and Plan Assessment: Periods of slurred speech, dysarthria and right hemiplegia secondary to acute stroke involving the left kellie New-onset diabetes mellitus Borderline low vitamin B12 been replaced Generalized weakness associated with recurrent falls at home Right internal carotid artery stenosis, mild 45% per CTA, r ecomomend repeat us every 6 months Plan: Continue with aspirin, Plavix is added Neurology consult Continue with vitamin B12 replacement therapy and metformin PMR consult: Inpatient rehab start Norvasc 5 mg daily starting 07/07/2023 Labs and medication were reviewed.. Continue same treatment. Continue with symptomatic treatment. Resume home medication. Monitor labs and vitals. DVT and GI prophylaxis. Further recommendations as per clinical course of the patient DVT prophylaxis: Subcutaneous heparin GI Prophylaxis: Pepcid PT/OT: reviewed Prognosis is guarded
[2023-07-06] MEDS: ASPIRIN 81 MG PO SCH (09:14)
[2023-07-06] MEDS: CYANOCOBALAMIN 500 MCG TAB PO SCH (09:14)
[2023-07-06] MEDS: FAMOTIDINE 20 MG/2 ML VIAL IV SCH ×2 (09:15→19:55)
[2023-07-06] MEDS: HEPARIN SODIUM,PORCINE 5,000 UNIT/ML 1 ML VIAL SQ SCH ×2 (09:15→19:55)
[2023-07-06] MEDS: CLOPIDOGREL 75 MG TAB PO SCH (09:15)
--- NOTE | 2023-07-06 12:10 | P.CONS ---
History of Present Illness - Reason for Consult Consult date: 07/06/23 rehab recommendations - Chief Complaint debility - History of Present Illness Irma Pavon is an 83 year old, , female, who lives in a single story home, with 2 GRACE with a left handrail. Prior to admission, she was ambulating without an assistive device. She was independent for basic/advanced ADLs. Current driving: yes. Retired: yes. Support system: , family She was admitted to [facility] on 07/03. She presented to the ED c/o generalized weakness. On the day of admission patient stated that she woke up at 4 AM feeling generally weak. The patient went back to sleep woke up at 6 AM and attempted to make breakfast but had significant difficulty doing so. EMS was called and found the patient patient laying down on the ground vomit on herself. She was originally seen at [facility] and was sent to [facility] for further evaluation. At [facility] patient had a CT of the head and neck showing significant stenosis of the right ICA with no acute findings. She was found to have periods of slurred speech, dysarthria and right hemiparesis which prompted further studies. Unfortunately patient was outside the window for tPA. C. difficile negative. Carotid ultrasound showed mild atherosclerotic plaque in the bilateral carotid bifurcations. CT of the brain showed age-related changes with nothing acute. Echocardiogram revealed an EF of 55 to 60% with no significant abnormality and a negative bubble study. MRI of the brain completed 07/05 showed acute ischemic changes of the left medial brainstem at the level kellie. PM&R consulted for rehab recommendations. Therapy evaluations reviewed; patient needing max assist for bed mobility, total assist toileting ability, total assist LB dressing, max assist bathing, min assist grooming, ambulation 4 feet mod assist with 2 WW, mod assist transfers with 2 WW 07/06/2023: Patient found in her room, sitting in chair, with granddaughter at bedside. Patient denies CP, SOB and abdominal pain. She does complain of some weakness and speech difficulties. She is looking forward to working with therapy, gaining some strength and endurance and returning home to her . Discussed therapy options, and due to distance patient requesting [facility] closer to home. Did discuss the differences in therapies received at a [facility] versus [facility]. Patient denies other concerns at this time. Review of Systems Negative unless noted in HPI Past Medical History Past Medical History: No Reported History History of Any Multi-Drug Resistant Organisms: None Reported Past Surgical History: Appendectomy Past Psychological History: No Psychological Hx Reported Smoking Status: Never smoker Medications and Allergies Home Medications Medication Instructions Recorded Confirmed Type Aspirin EC [Ecotrin Low Dose] 81 mg PO DAILY 08/04/20 07/03/23 History Biotin 300mcg 300 mcg PO DAILY 08/04/20 07/03/23 History Calcium Lactate 84mg 252 tab PO BID 08/04/20 07/03/23 History Cholecalciferol (Vitamin D3) 125 mcg PO DAILY 08/04/20 07/03/23 History [Vitamin D3 (5000 Iu)] Gelatin 650mg 650 mg PO DAILY 08/04/20 07/03/23 History [place]-3 Fatty Acids [[place]-3] 1,000 mg PO BID 07/03/23 07/03/23 History Vitamin A Palmitate [Vitamin A-25 7,500 mcg PO DAILY 07/03/23 07/03/23 History (25,000 Units = 7500 MCG)] Vitamin E (Dl,Tocopheryl Acet) 400 unit PO BID 07/03/23 07/03/23 History [Vitamin E (400 Iu = 180 mg)] Vitamin K2 100 mcg PO DAILY 07/03/23 07/03/23 History Allergies Allergy/AdvReac Type Severity Reaction Status Date / Time No Known Allergies Allergy Verified 07/03/23 19:14 Physical Exam Vitals: Vital Signs Temp Pulse Pulse Resp BP Pulse Ox 07/06/23 04:00 97.9 F 56 L 18 160/79 97 07/06/23 00:00 98.0 F 59 L 19 153/85 96 07/05/23 20:00 97.9 F 55 L 19 188/80 97 07/05/23 17:14 63 18 156/77 97 07/05/23 12:58 70 18 174/76 97 07/05/23 10:00 97.7 F 74 16 157/72 98 Intake and Output 07/05/23 07/06/23 07/06/23 22:59 06:59 14:59 Intake Total 240 Balance 240 Intake: Oral 240 Other: Voiding Method Bedside Commode Bedside Commode # Voids 3 1 # Bowel Movements 4 1 1 EXAM; General: WDWN, elderly female, sitting in chair at bedside, visiting with granddaughter, NAD Head: Normocephalic, atraumatic. Eyes: Symmetric Ears: Symmetric. Hearing within normal limits. Mouth: Clear. Neck: Supple. Cardiac: cardiac cath tech on. Calves supple, non tender, no edema Lungs: Breathing comfortably on RA. Chest symmetric. Abdomen: Soft, nontender. Extremities: Arthritic changes consistent with age. Neurological: Alert and oriented x 3. Speech is mildly slurred and fluent without paraphasic errors Cranial nerves: CN II-XII: intact. Sensation: Intact and symmetrical limbs. Musculoskeletal: ROM WFL EXCEPT: right sided hemiparesis MMT UE Sh Abd EE EF FABD WE HG Right 1 3 3 3+ Left 5 5 5 5 MMT LE HF KE DF EHL Right 1 1 0 0 Left 5 5 5 5 Reflexes Biceps Triceps Brachioradialis Patella Achilles Babinski Hoffmans Right 3+ Left 3+ + right babinski Skin: Skin intact where visible to head, neck, and bilateral upper and lower extremities EXCEPT: PIV Psych: Calm, cooperative Results CBC & Chem 7: 07/05/23 11:59 07/05/23 11:59 Labs: Abnormal Lab Results - Last 24 Hours (Table) 07/05/23 07/05/23 Range/Units 11:59 11:59 Plt Count 128 L (150-450) k/uL Lymphocytes # 0.8 L (1.0-4.8) k/uL Glucose 168 H (74-99) mg/dL Cholesterol 224.00 H (0.00-200.00) mg/dL LDL Cholesterol, Calc 135.2 H (0.0-131.0) mg/dL HDL Cholesterol 65.20 H (40.00-60.00) mg/dL Assessment and Plan Assessment: #Gait impairment/impaired ADLs secondary to acute left pontine ischemic stroke with right-sided hemiparesis -Aspirin, Plavix -Neurology following -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 # Diet -Diabetic # Skin/wound: Skin/Wound care to follow as needed # Pain Management -Dilaudid 0.5 mg every 3 hours as needed # DVT Prophylaxis: Defer to Ortho/IM management. -Subcu heparin # Comorbidities: none reported # Your medical dx and mgt Goals: Modified Independent mobility and ADLS both basic and advanced; increased functional mobility/strength; increased balance, safety, endurance. Improvement in medical issues through your care. Barriers: Dysarthria, right-sided hemiparesis Discharge recommendation: [facility] at discharge. Due to distance from home patient would like [facility] closer to home. Discussed with patient the differences between therapies at [facility] versus [facility]. Advised nurse to report to caseworker protective services to ensure family understands differences between [facility] versus [facility] and can make an informed/educated decision on rehabilitation at discharge. Will continue to follow for any updates regarding discharge planning. Patient seen and examined in coordination with Dr. Ramirez Author: Ambar Davis NP
[2023-07-06] MEDS: SODIUM CHLORIDE 0.9% 1,000 ML IV SCH (15:56)
[2023-07-06] MEDS: ATORVASTATIN 80 MG TAB PO SCH (19:55)
[2023-07-07 04:00] LABS: Glucose,Whole Blood 107 mg/dL (70-110)
[2023-07-07] MEDS: SODIUM CHLORIDE 0.9% 1,000 ML IV SCH ×2 (04:06→16:35)
[2023-07-07] MEDS: metFORMIN 500 MG TAB PO SCH ×2 (06:38→16:35)
[2023-07-07 06:41] LABS: Glucose,Whole Blood 100 mg/dL (70-110)
--- NOTE | 2023-07-07 07:19 | CT ---
EXAMINATION TYPE: CT brain wo con CT DLP: 1109 mGycm, Automated exposure control for dose reduction was used. DATE OF EXAM: 07/07/2023 5:14 AM COMPARISON: 07/04/2023.. CLINICAL INDICATION:Female, 83 years old with history of double vision, TECHNIQUE: Brain: Axial CT images of the brain were obtained with coronal and sagittal reformats created and rev iewed. Contrast used: None. Oral contrast used: None. FINDINGS: Brain: Extra-axial spaces: No abnormal extra-axial fluid collections. Ventricular system: Dilatation in proportion to cerebral atrophy. Cerebral parenchyma: Cerebral atrophy. No acute intraparenchymal hemorrhage or mass effect. The lozoya -white junction is well differentiated. Scattered hypoattenuating areas are seen within the white mat ter. Cerebellum: Unremarkable. Mass effect: No evidence of midline shift. Intracranial vasculature: Atherosclerotic calcifications of the intracranial vessels. Soft tissues: Normal. Calvarium/osseous structures: No depressed skull fracture. Paranasal sinuses and mastoid air cells: Mild scattered paranasal sinus disease. Visualized orbits: Orbital contents are intact. IMPRESSION: 1. No acute intracranial process. 2. Nonspecific white matter changes, likely secondary to chronic small vessel ischemic disease.
[2023-07-07] MEDS: CYANOCOBALAMIN 500 MCG TAB PO SCH (09:26)
[2023-07-07] MEDS: ASPIRIN 81 MG PO SCH (09:26)
[2023-07-07] MEDS: CLOPIDOGREL 75 MG TAB PO SCH (09:26)
[2023-07-07] MEDS: HEPARIN SODIUM,PORCINE 5,000 UNIT/ML 1 ML VIAL SQ SCH ×2 (09:27→21:17)
[2023-07-07] MEDS: FAMOTIDINE 20 MG/2 ML VIAL IV SCH ×2 (09:27→21:17)
[2023-07-07 11:29] LABS: Glucose,Whole Blood 100 mg/dL (70-110)
--- NOTE | 2023-07-07 11:42 | P.CRDCN ---
History of Present Illness History of present illness: HISTORY OF PRESENT ILLNESS: This is a 83-year-old female with a past medical history significant for right ICA stenosis and newly diagnosed diabetes. 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 We have been asked to see the patient in consultation for recurrent TIA. Patient examined at the bedside. Patient presented to the hospital with a chief complaint of right-sided weakness. She states that she was unable to move her right arm or leg. She states that she can move her right leg a lot more today. She is still having difficulty with her right arm. She c urrently denies chest pain or pressure. She denies shortness of breath. Vital signs are stable. * Telemetry reveals sinus mechanism with no episodes of atrial fibrillation noted * Current home cardiac medications include aspirin 81 mg daily * Echocardiogram completed revealing ejection fraction 55-60%, negative bubble study, no pericardial effusion REVIEW OF SYSTEMS: At the time of my exam: CONSTITUTIONAL: Denies fever or chills. HEENT: Denies blurred vision, vision changes, or eye pain. Denies hemoptysis CARDIOVASCULAR: Denies chest pain. Denies orthopnea. Denies PND. Denies palpitations RESPIRATORY: Denies shortness of breath. GASTROINTESTINAL: Denies abdominal pain. Denies nausea or vomiting. HEMATOLOGIC: Denies bleeding disorders. GENITOURINARY: Denies any blood in urine. SKIN: Denies pruitis. Denies rash. PHYSICAL EXAM: VITAL SIGNS: Reviewed. GENERAL: Well-developed in no acute distress. HEENT: Head is normocephalic. Pupils are equal, round. Sclerae anicteric. Mucous membranes of the mouth are moist. Neck supple. No JVD or thyromegaly LUNGS: Respirations even and unlabored. Lungs essentially clear to auscultation bilaterally. HEART: Regular rate and rhythm. S1 and S2 heard. ABDOMEN: Soft. Nondistended. Nontender. EXTREMITIES: Right-sided weakness. No clubbing or cyanosis. Peripheral pulses intact. No lower extremity edema NEUROLOGIC: Awake and alert. Oriented x 3. ASSESSMENT: Acute left pontine ischemic stroke with right-sided weakness Right ICA stenosis New-onset diabetes PLAN: 2-D echo completed and reviewed. Negative bubble study. Continue telemetry monitoring Will consider loop recorder insertion for long-term monitoring to rule out atrial fibrillation Further recommendations pending patient's course Nurse practitioner note has been reviewed by physician. Signing provider agrees with the documented findings, assessment, and plan of care. Past Medical History Past Medical History: No Reported History History of Any Multi-Drug Resistant Organisms: None Reported Past Surgical History: Appendectomy Past Psychological History: No Psychological Hx Reported Smoking Status: Never smoker Medications and Allergies Home Medications Medication Instructions Recorded Confirmed Type Aspirin EC [Ecotrin Low Dose] 81 mg PO DAILY 08/04/20 07/03/23 History Biotin 300mcg 300 mcg PO DAILY 08/04/20 07/03/23 History Calcium Lactate 84mg 252 tab PO BID 08/04/20 07/03/23 History Cholecalciferol (Vitamin D3) 125 mcg PO DAILY 08/04/20 07/03/23 History [Vitamin D3 (5000 Iu)] Gelatin 650mg 650 mg PO DAILY 08/04/20 07/03/23 History [place]-3 Fatty Acids [[place]-3] 1,000 mg PO BID 07/03/23 07/03/23 History Vitamin A Palmitate [Vitamin A-25 7,500 mcg PO DAILY 07/03/23 07/03/23 History (25,000 Units = 7500 MCG)] Vitamin E (Dl,Tocopheryl Acet) 400 unit PO BID 07/03/23 07/03/23 History [Vitamin E (400 Iu = 180 mg)] Vitamin K2 100 mcg PO DAILY 07/03/23 07/03/23 History Allergies Allergy/AdvReac Type Severity Reaction Status Date / Time No Known Allergies Allergy Verified 07/03/23 19:14 Physical Exam Vitals: Vital Signs Temp Pulse Resp BP Pulse Ox 07/07/23 04:00 98 F 56 L 18 146/71 96 07/07/23 02:00 56 L 18 07/07/23 00:00 98.3 F 55 L 18 134/75 97 07/06/23 20:00 98.9 F 60 18 156/72 97 07/06/23 16:00 97.8 F 63 16 162/96 98 07/06/23 12:00 98 F 59 L 18 152/83 96 Intake and Output 07/06/23 07/07/23 07/07/23 22:59 06:59 14:59 Other: Voiding Method Bedside Commode Bedside Commode # Voids 1 Results 07/05/23 11:59 07/05/23 11:59 Current Medications Generic Name Dose Route Start Last Admin Trade Name Freq PRN Reason Stop Dose Admin Aspirin 81 mg 07/04/23 09:00 07/06/23 09:14 Aspirin 81 Mg PO 81 mg DAILY ABDIRAHMAN Administration Atorvastatin Calcium 80 mg 07/06/23 21:00 07/06/23 19:55 Atorvastatin 80 Mg Tab PO 80 mg HS ABDIRAHMAN Administration Clopidogrel Bisulfate 75 mg 07/04/23 09:00 07/06/23 09:15 Clopidogrel 75 Mg Tab PO 75 mg DAILY ABDIRAHMAN Administration Cyanocobalamin 1,000 mcg 07/06/23 09:00 07/06/23 09:14 Cyanocobalamin 500 Mcg Tab PO 1,000 mcg DAILY ABDIRAHMAN Administration Famotidine 20 mg 07/04/23 09:00 07/06/23 19:55 Famotidine 20 Mg/2 Ml Vial IV 20 mg Q12HR ABDIRAHMAN Administration Heparin Sodium (Porcine) 5,000 unit 07/04/23 09:00 07/06/23 19:55 Heparin Sodium,Porcine 5,000 Unit/Ml 1 Ml Vial SQ 5,000 unit Q12HR ABDIRAHMAN Administration Hydromorphone HCl 0.5 mg 07/03/23 18:44 Hydromorphone 0.5 Mg/0.5 Ml Syringe IVP Q3HR PRN Moderate Pain (Scale 4 to 6) Sodium Chloride 1,000 mls @ 75 mls/hr 07/03/23 18:45 07/07/23 04:06 Saline 0.9% IV Not Given .[id number] Metformin HCl 500 mg 07/06/23 07:30 07/07/23 06:38 Metformin 500 Mg Tab PO 500 mg BID-W/MEALS ABDIRAHMAN Administration Naloxone HCl 0.2 mg 07/03/23 18:44 Naloxone 0.4 Mg/Ml 1 Ml Vial IV Q2M PRN Opioid Reversal Ondansetron HCl 4 mg 07/03/23 18:44 Ondansetron 4 Mg/2 Ml Vial IVP Q8HR PRN Nausea And Vomiting Intake and Output 07/06/23 07/07/23 07/07/23 22:59 06:59 14:59 Other: Voiding Method Bedside Commode Bedside Commode # Voids 1 07/05/23 11:59 07/05/23 11:59
--- NOTE | 2023-07-07 13:22 | P.PN ---
Subjective This is a pleasant 83 years old female with multiple medical problems She was transferred from [facility] for consults of weakness and sl urred speech She has history of multiple falls over the last year. Her PCP is Dr. Allison, she was taken baby aspirin 81 mg at home Monday she did not take her aspirin because she was busy and then Monday yesterday she started having speech difficulty, her speech still obvious dysarthric although she can find or spot with some hesitation. Also patient complaining of from weakness in the right arm and leg She denies headache or dizziness, no blurred vision. No chest pain or dyspnea. No abdominal pain or vomiting or diarrhea. No urinary complaints. She denies smoking alcohol or illicit drugs On reviewing the records from [facility] EKG showing sinus bradycardia with right bundle branch block Urine drug screen showing 2-4 highly 4 field wbc, is not suspicious of infection. Lactic acid within the reference range at 1.8 WBC 5.0, hemoglobin 14.8, platelet count 145 which is mildly low Creatinine 0.9, BUN is 14 Calcium 9.2, sodium 141, potassium 4.1, I and Erin 14 Liver enzymes AST, ALT and total bilirubin are not elevated at 18, 9 and 0.6 respectively Influenza A and type B, RSV, SARS (coronavirus) are and detected Troponin is within the reference range at 3.6, reference range is 0.0-17.5 CTA of the head proximal intracranial arterial occlusion or high-grade stenosis CTA of the neck showing no vascular acute findings, no left ICA stenosis, 45% RCA stenosis 07/05/2023 Patient still has dysarthria and right hemiparesis Blood pressure elevated for permissive hypertension Hemoglobin A1c 7, patient informed she has diabetes and she agrees to start medication pending and then we will start her on metformin Vitamin B12: 348 which is borderline low level. We don't replacement with one- time dose of vitamin B12 injection and then continue oral dose tomorrow MRI of the brain pending Consult PMR 07/06/2023 patient still complaining from patient right hemiplegia more in the right leg than the right arm, she says her right leg she can move it and bended little bit compared to yesterday and the right arm is SO very little better this morning, she can hardly move both arm and leg. Her speech is improving although not normal. No other new complaints. The brain showing: Acute ischemic change left medial brain stem of the level of the kellie, MRI reviewed by myself Patient remains on aspirin and Plavix, metformin vitamin B12 spills PMR consulted and patient may go to inpatient rehab. 07/07/2023 Patient dysarthria and right hemiparesis improving, patient she is happy she can move her shoulder, right elbow and 3 over her right hand better than yesterday. last night there was suspicion of diplopia, repeat CAT scan of the brain ordered showing no changes. Cardiology team were consulted and the recommended loop recorder as an outpatient. Today when asked the patient and she said she had hot flashes and sweating which prolonged more than usual in this portion was concerned however she feels better now and she denies any double vision. Patient now is agreeable to go to like urine inpatient rehab other than the outside facility as she got 3 hours of preoperative today compared to 1.[address] Patient remains on aspirin and Plavix. Patient is medically stable for discharge and pending replacement Objective - Vital Signs Vital signs: Vital Signs Temp 97.6 F 07/07/23 08:37 Pulse 54 L 07/07/23 11:26 Resp 17 07/07/23 11:26 BP 144/85 07/07/23 11:26 Pulse Ox 96 07/07/23 11:26 FiO2 Intake & Output 07/06/23 07/07/23 07/07/23 18:59 06:59 18:59 Other: Voiding Method Bedside Commode Bedside Commode Bedside Commode # Voids 1 1 1 # Bowel Movements 1 - Exam GENERAL: The patient is alert and oriented x3, not in any acute distress. Well developed, well nourished. HEENT: Pupils are round and equally reacting to light. EOMI. No scleral icterus. No conjunctival pallor. Normocephalic, atraumatic. No pharyngeal erythema. No thyromegaly. CARDIOVASCULAR: S1 and S2 present. No murmurs, rubs, or gallops. PULMONARY: Chest is clear to auscultation, no wheezing , no crackles. ABDOMEN: Soft, nontender, nondistended, normoactive bowel sounds. No palpable organomegaly. MUSCULOSKELETAL: No joint swelling or deformity. EXTREMITIES: No cyanosis, clubbing, or pedal edema. -NEUROLOGICAL: Dysarthria with mild expressive aphasia, rest of cranial nerves are grossly intact. Right-sided weakness with difficulty moving her right. upper and lower extremities 2/5, left side motor exams 5/5. Sensation is intact. SKIN: No rashes. no petechiae. - Labs CBC & Chem 7: 07/05/23 11:59 07/05/23 11:59 Assessment and Plan Assessment: Periods of slurred speech, dysarthria and right hemiplegia secondary to acute stroke involving the left kellie New-onset diabetes mellitus Borderline low vitamin B12 been replaced Generalized weakness associated with recurrent falls at home Right internal carotid artery stenosis, mild 45% per CTA, r ecomomend repeat us every 6 months Plan: Continue with aspirin, Plavix is added Neurology consult Continue with vitamin B12 replacement therapy and metformin PMR consult: Inpatient rehab start Norvasc 5 mg daily starting 07/07/2023 Labs and medication were reviewed.. Continue same treatment. Continue with sym ptomatic treatment. Resume home medication. Monitor labs and vitals. DVT and GI prophylaxis. Further recommendations as per clinical course of the patient DVT prophylaxis: Subcutaneous heparin GI Prophylaxis: Pepcid PT/OT: reviewed Prognosis is guarded
--- NOTE | 2023-07-07 14:37 | P.PN ---
Subjective Progress Note Date: 07/07/23 Principal diagnosis: CVA rIma Pavon is an 83 year old, , female, who lives in a single story home, with 2 GRACE with a left handrail. Prior to admission, she was ambulating without an assistive device. She was independent for basic/advanced ADLs. Current driving: yes. Retired: yes. Support system: , family She was admitted to [facility] on 07/03. She presented to the ED c/o generalized weakness. On the day of admission patient stated that she woke up at 4 AM feeling generally weak. The patient went back to sleep woke up at 6 AM and attempted to make breakfast but had significant difficulty doing so. EMS was called and found the patient patient laying down on the ground vomit on herself. She was originally seen at [facility] and was sent to [facility] for further evaluation. At [place] patient had a CT of the head a nd neck showing moderate stenosis of the right ICA with no acute findings. She was found to have periods of slurred speech, dysarthria and right hemiparesis which prompted further studies. Unfortunately patient was outside the window for tPA. C. difficile negative. Carotid ultrasound showed mild atherosclerotic plaque in the bilateral carotid bifurcations. CT of the brain showed age- related changes with nothing acute. Echocardiogram revealed an EF of 55 to 60% with no significant abnormality and a negative bubble study. MRI of the brain completed 07/05 showed acute ischemic changes of the left medial brainstem at the level kellie. PM&R consulted for rehab recommendations. Therapy evaluations reviewed; patient needing max assist for bed mobility, total assist toileting ability, total assist LB dressing, max assist bathing, min assist grooming, ambulation 4 feet mod assist with 2 WW, mod assist transfers with 2 WW 07/06/2023: Patient found in her room, sitting in chair, with granddaughter at bedside. Patient denies CP, SOB and abdominal pain. She does complain of some weakness and speech difficulties. She is looking forward to working with therapy, gaining some strength and endurance and returning home to her . Discussed therapy options, and due to distance patient requesting [facility] closer to home. Did discuss the differences in therapies received at a [facility] versus [facility]. Patient denies other concerns at this time. 07/07/23: Patient found sitting in recliner at bedside, visiting with . She denies CP, SOB and abdominal pain. She denies pain. Issues with urination, LBM 07/05. Patient is looking forward to working with therapy, gaining some strength and endurance, and returning home to her . Patient and family are now requesting [facility] over [facility]. Patient denies concerns at this time. Of note, overnight there was suspicion of diplopia with repeat CT of the brain showing no changes. Therapy progress: Mod assist bed mobility, mod assist transfers with hemiwalker, ambulation 12 feet mod assist with hemiwalker Objective - Vital Signs Vital signs: Vital Signs Temp 97.6 F 07/07/23 08:37 Pulse 54 L 07/07/23 11:26 Resp 17 07/07/23 11:26 BP 144/85 07/07/23 11:26 Pulse Ox 96 07/07/23 11:26 FiO2 Intake & Output 07/06/23 07/07/23 07/07/23 18:59 06:59 18:59 Other: Voiding Method Bedside Commode Bedside Commode Bedside Commode # Voids 1 1 1 # Bowel Movements 1 - Exam EXAM; General: WDWN, elderly female, sitting in chair at bedside, visiting with , NAD Head: Normocephalic, atraumatic. Eyes: Symmetric Ears: Symmetric. Hearing within normal limits. Mouth: Clear. Cardiac: traffic monitor specialist on. Calves supple, non tender, no edema Lungs: Breathing comfortably on RA. Chest symmetric. Abdomen: Soft, nontender. Extremities: Arthritic changes consistent with age. Neurological: Alert and oriented x 3. 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 -07/07/23: denies issues, LBM 07/05 # Diet -Diabetic -07/07/23: tolerating diet without issues # Skin/wound: Skin/Wound care to follow as needed # Pain Management -Dilaudid 0.5 mg every 3 hours as needed # DVT Prophylaxis: Defer to Ortho/IM management. -Subcu heparin # Comorbidities: none reported # Your medical dx and mgt Goals: Modified Independent mobility and ADLS both basic and advanced; increased functional mobility/strength; increased balance, safety, endurance. Improvement in medical issues through your care. Barriers: Dysarthria, right-sided hemiparesis Discharge recommendation: IPR at discharge. Patient is making progress. She is looking forward to working with therapy. Supportive family and . Need updated therapy notes. Probable admission 07/10. Patient seen and examined in coordination with Dr. Ruiz Author: Ambar Davis NP
[2023-07-07 16:27] LABS: Glucose,Whole Blood 112 mg/dL (70-110)
[2023-07-07 20:28] LABS: Glucose,Whole Blood 125 mg/dL (70-110)
[2023-07-07] MEDS: ATORVASTATIN 80 MG TAB PO SCH (21:17)
[2023-07-08 06:13] LABS: Glucose,Whole Blood 106 mg/dL (70-110)
[2023-07-08] MEDS: metFORMIN 500 MG TAB PO SCH ×2 (06:22→17:54)
[2023-07-08] MEDS: SODIUM CHLORIDE 0.9% 1,000 ML IV SCH (06:23)
[2023-07-08] MEDS: CLOPIDOGREL 75 MG TAB PO SCH (09:59)
[2023-07-08] MEDS: CYANOCOBALAMIN 500 MCG TAB PO SCH (09:59)
[2023-07-08] MEDS: FAMOTIDINE 20 MG/2 ML VIAL IV SCH ×2 (10:00→20:00)
[2023-07-08] MEDS: HEPARIN SODIUM,PORCINE 5,000 UNIT/ML 1 ML VIAL SQ SCH ×2 (10:00→20:00)
[2023-07-08] MEDS: ASPIRIN 81 MG PO SCH (10:00)
[2023-07-08 11:37] LABS: Glucose,Whole Blood 80 mg/dL (70-110)
--- NOTE | 2023-07-08 12:37 | P.PN ---
Subjective Progress Note Date: 07/08/23 The patient is an 83-year-old female with past medical history of carotid disease, who presented to the hospital with right-sided weakness. She was found to have an acute left pontine ischemic stroke. Echocardiogram reveals EF of 55- 60% with negative bubble study. Patient was interviewed and examined resting comfortably in bed. Her right upper extremity weakness has improved, however she states her right lower extremity is still difficult to move in the bed. She states she will be going to subacute rehab GENERAL: Well-appearing, well-nourished and in no acute distress. NECK: Supple without JVD or thyromegaly. LUNGS: Breath sounds clear to auscultation bilaterally. Respiration equal and unlabored. No wheezes, rales or rhonchi. HEART: Regular rate and rhythm without murmurs, rubs or gallops. S1 and S2 heard. EXTREMITIES: Normal range of motion, no edema. No clubbing or cyanosis. Peripheral pulses intact and strong. Right sided weakness is improving. TELEMETRY: Sinus mechanism overnight IMPRESSION: Acute left pontine ischemic stroke with right sided hemiparesis Right ICA stenosis New-onset diabetes PLAN: Continue dual antiplatelet therapy and statin Patient may be discharged from the cardiac standpoint Outpatient follow-up in [address] Sin I am dictating on behalf of Dr Franco Sin's history/physical and assessment/plan. Objective - Vital Signs Vital signs: Vital Signs Temp 98.3 F 07/08/23 09:45 Pulse 61 07/08/23 11:35 Resp 16 07/08/23 11:35 BP 139/76 07/08/23 11:35 Pulse Ox 98 07/08/23 11:35 FiO2 Intake & Output 07/07/23 07/08/23 07/08/23 18:59 06:59 18:59 Intake Total 228 240 Balance 228 240 Intake: Oral 228 240 Other: Voiding Method Bedside Commode Bedside Commode Bedside Commode # Voids 1 1 1 # Bowel Movements 1 1 - Labs CBC & Chem 7: 07/05/23 11:59 07/05/23 11:59 Labs: Abnormal Lab Results - Last 24 Hours (Table) 07/07/23 07/07/23 Range/Units 16:25 20:23 POC Glucose (mg/dL) 112 H 125 H (70-110) mg/dL
[2023-07-08 16:06] LABS: Glucose,Whole Blood 118 mg/dL (70-110)
--- NOTE | 2023-07-08 18:40 | P.PN ---
Subjective This is a pleasant 83 years old female with multiple medical problems She was transferred from [facility] for consults of weakness and sl urred speech She has history of multiple falls over the last year. Her PCP is Dr. Allison, she was taken baby aspirin 81 mg at home Monday she did not take her aspirin because she was busy and then Monday yesterday she started having speech difficulty, her speech still obvious dysarthric although she can find or spot with some hesitation. Also patient complaining of from weakness in the right arm and leg She denies headache or dizziness, no blurred vision. No chest pain or dyspnea. No abdominal pain or vomiting or diarrhea. No urinary complaints. She denies smoking alcohol or illicit drugs On reviewing the records from [facility] EKG showing sinus bradycardia with right bundle branch block Urine drug screen showing 2-4 highly 4 field wbc, is not suspicious of infection. Lactic acid within the reference range at 1.8 WBC 5.0, hemoglobin 14.8, platelet count 145 which is mildly low Creatinine 0.9, BUN is 14 Calcium 9.2, sodium 141, potassium 4.1, I and Erin 14 Liver enzymes AST, ALT and total bilirubin are not elevated at 18, 9 and 0.6 respectively Influenza A and type B, RSV, SARS (coronavirus) are and detected Troponin is within the reference range at 3.6, reference range is 0.0-17.5 CTA of the head proximal intracranial arterial occlusion or high-grade stenosis CTA of the neck showing no vascular acute findings, no left ICA stenosis, 45% RCA stenosis 07/05/2023 Patient still has dysarthria and right hemiparesis Blood pressure elevated for permissive hypertension Hemoglobin A1c 7, patient informed she has diabetes and she agrees to start medication pending and then we will start her on metformin Vitamin B12: 348 which is borderline low level. We don't replacement with one- time dose of vitamin B12 injection and then continue oral dose tomorrow MRI of the brain pending Consult PMR 07/06/2023 patient still complaining from patient right hemiplegia more in the right leg than the right arm, she says her right leg she can move it and bended little bit compared to yesterday and the right arm is SO very little better this morning, she can hardly move both arm and leg. Her speech is improving although not normal. No other new complaints. The brain showing: Acute ischemic change left medial brain stem of the level of the kellie, MRI reviewed by myself Patient remains on aspirin and Plavix, metformin vitamin B12 spills PMR consulted and patient may go to inpatient rehab. 07/07/2023 Patient dysarthria and right hemiparesis improving, patient she is happy she can move her shoulder, right elbow and 3 over her right hand better than yesterday. last night there was suspicion of diplopia, repeat CAT scan of the brain ordered showing no changes. Cardiology team were consulted and the recommended loop recorder as an outpatient. Today when asked the patient and she said she had hot flashes and sweating which prolonged more than usual in this portion was concerned however she feels better now and she denies any double vision. Patient now is agreeable to go to like urine inpatient rehab other than the outside facility as she got 3 hours of preoperative today compared to 1.[address] Patient remains on aspirin and Plavix. Patient is medically stable for discharge and pending replacement 07/08/2023 Patient dysarthria improved, very close to normal. Start the proximity keep improving today better than yesterday, for example today she can move all her right hand finger compared to 3 fingers yesterday. Which is the same feeling of the patient and family. Patient remains on aspirin and Plavix Side Hemmer on the case. Patient is medically stable for discharge pending placement Objective - Vital Signs Vital signs: Vital Signs Temp 98.3 F 07/08/23 09:45 Pulse 60 07/08/23 09:45 Resp 16 07/08/23 09:45 BP 107/64 07/08/23 09:45 Pulse Ox 96 07/08/23 09:45 FiO2 Intake & Output 07/07/23 07/08/23 07/08/23 18:59 06:59 18:59 Intake Total 228 240 Balance 228 240 Intake: Oral 228 240 Other: Voiding Method Bedside Commode Bedside Commode Bedside Commode # Voids 1 1 # Bowel Movements 1 - Exam GENERAL: The patient is alert and oriented x3, not in any acute distress. Well developed, well nourished. HEENT: Pupils are round and equally reacting to light. EOMI. No scleral icterus. No conjunctival pallor. Normocephalic, atraumatic. No pharyngeal erythema. No thyromegaly. CARDIOVASCULAR: S1 and S2 present. No murmurs, rubs, or gallops. PULMONARY: Chest is clear to auscultation, no wheezing , no crackles. ABDOMEN: Soft, nontender, nondistended, normoactive bowel sounds. No palpable organomegaly. MUSCULOSKELETAL: No joint swelling or deformity. EXTREMITIES: No cyanosis, clubbing, or pedal edema. -NEUROLOGICAL: Dysarthria with mild expressive aphasia, rest of cranial nerves are grossly intact. Right-sided weakness with difficulty moving her right. upper and lower extremities 2/5, left side motor exams 5/5. Sensation is intact. SKIN: No rashes. no petechiae. - Labs CBC & Chem 7: 07/05/23 11:59 07/05/23 11:59 Labs: Abnormal Lab Results - Last 24 Hours (Table) 07/07/23 07/07/23 Range/Units 16:25 20:23 POC Glucose (mg/dL) 112 H 125 H (70-110) mg/dL Assessment and Plan Assessment: Periods of slurred speech, dysarthria and right hemiplegia secondary to acute stroke involving the left kellie New-onset diabetes mellitus Borderline low vitamin B12 been replaced Generalized weakness associated with recurrent falls at home Right internal carotid artery stenosis, mild 45% per CTA, r ecomomend repeat us every 6 months Plan: Continue with aspirin, Plavix is added Neurology consult Continue with vitamin B12 replacement therapy and metformin PMR consult: Inpatient rehab start Norvasc 5 mg daily starting 07/07/2023 Labs and medication were reviewed.. Continue same treatment. Continue with symptomatic treatment. Resume home medication. Monitor labs and vitals. DVT and GI prophylaxis. Further recommendations as per clinical course of the patient DVT prophylaxis: Subcutaneous heparin GI Prophylaxis: Pepcid PT/OT: reviewed Prognosis is guarded
[2023-07-08 19:59] LABS: Glucose,Whole Blood 109 mg/dL (70-110)
[2023-07-08] MEDS: ATORVASTATIN 80 MG TAB PO SCH (19:59)
[2023-07-09 07:52] LABS: Glucose,Whole Blood 105 mg/dL (70-110)
[2023-07-09] MEDS: metFORMIN 500 MG TAB PO SCH ×2 (08:51→17:22)
[2023-07-09] MEDS: ASPIRIN 81 MG PO SCH (08:51)
[2023-07-09] MEDS: HEPARIN SODIUM,PORCINE 5,000 UNIT/ML 1 ML VIAL SQ SCH ×2 (08:51→20:16)
[2023-07-09] MEDS: CYANOCOBALAMIN 500 MCG TAB PO SCH (08:51)
[2023-07-09] MEDS: CLOPIDOGREL 75 MG TAB PO SCH (08:51)
[2023-07-09] MEDS: FAMOTIDINE 20 MG/2 ML VIAL IV SCH ×2 (10:04→20:16)
[2023-07-09 12:03] LABS: Glucose,Whole Blood 102 mg/dL (70-110)
[2023-07-09 17:05] LABS: Glucose,Whole Blood 125 mg/dL (70-110)
[2023-07-09] MEDS: ATORVASTATIN 80 MG TAB PO SCH (19:33)
[2023-07-09 20:45] LABS: Glucose,Whole Blood 115 mg/dL (70-110)
--- NOTE | 2023-07-09 22:04 | P.PN ---
Subjective This is a pleasant 83 years old female with multiple medical problems She was transferred from [facility] for consults of weakness and sl urred speech She has history of multiple falls over the last year. Her PCP is Dr. Allison, she was taken baby aspirin 81 mg at home Monday she did not take her aspirin because she was busy and then Monday yesterday she started having speech difficulty, her speech still obvious dysarthric although she can find or spot with some hesitation. Also patient complaining of from weakness in the right arm and leg She denies headache or dizziness, no blurred vision. No chest pain or dyspnea. No abdominal pain or vomiting or diarrhea. No urinary complaints. She denies smoking alcohol or illicit drugs On reviewing the records from [facility] EKG showing sinus bradycardia with right bundle branch block Urine drug screen showing 2-4 highly 4 field wbc, is not suspicious of infection. Lactic acid within the reference range at 1.8 WBC 5.0, hemoglobin 14.8, platelet count 145 which is mildly low Creatinine 0.9, BUN is 14 Calcium 9.2, sodium 141, potassium 4.1, I and Erin 14 Liver enzymes AST, ALT and total bilirubin are not elevated at 18, 9 and 0.6 respectively Influenza A and type B, RSV, SARS (coronavirus) are and detected Troponin is within the reference range at 3.6, reference range is 0.0-17.5 CTA of the head proximal intracranial arterial occlusion or high-grade stenosis CTA of the neck showing no vascular acute findings, no left ICA stenosis, 45% RCA stenosis 07/05/2023 Patient still has dysarthria and right hemiparesis Blood pressure elevated for permissive hypertension Hemoglobin A1c 7, patient informed she has diabetes and she agrees to start medication pending and then we will start her on metformin Vitamin B12: 348 which is borderline low level. We don't replacement with one- time dose of vitamin B12 injection and then continue oral dose tomorrow MRI of the brain pending Consult PMR 07/06/2023 patient still complaining from patient right hemiplegia more in the right leg than the right arm, she says her right leg she can move it and bended little bit compared to yesterday and the right arm is SO very little better this morning, she can hardly move both arm and leg. Her speech is improving although not normal. No other new complaints. The brain showing: Acute ischemic change left medial brain stem of the level of the kellie, MRI reviewed by myself Patient remains on aspirin and Plavix, metformin vitamin B12 spills PMR consulted and patient may go to inpatient rehab. 07/07/2023 Patient dysarthria and right hemiparesis improving, patient she is happy she can move her shoulder, right elbow and 3 over her right hand better than yesterday. last night there was suspicion of diplopia, repeat CAT scan of the brain ordered showing no changes. Cardiology team were consulted and the recommended loop recorder as an outpatient. Today when asked the patient and she said she had hot flashes and sweating which prolonged more than usual in this portion was concerned however she feels better now and she denies any double vision. Patient now is agreeable to go to like urine inpatient rehab other than the outside facility as she got 3 hours of preoperative today compared to 1.[address] Patient remains on aspirin and Plavix. Patient is medically stable for discharge and pending replacement 07/08/2023 Patient dysarthria improved, very close to normal. Start the proximity keep improving today better than yesterday, for example today she can move all her right hand finger compared to 3 fingers yesterday. Which is the same feeling of the patient and family. 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 Patient is medically stable for discharge pending placement 07/09/2023 Patient continued to improve every day slowly and gradually, she can move more her right upper extremity to certain level. Cardiology cleared the patient for discharge and follow-up with Dr. Jerez in 2 weeks, instruction place and the discharge recommendations. Patient is medically stable pending placement to inpatient rehab at [facility] tomorrow Continue with aspirin and Plavix Patient's wants to be DO NOT RESUSCITATE Objective - Vital Signs Vital signs: Vital Signs Temp 97.5 F L 07/09/23 07:30 Pulse 62 07/09/23 07:30 Resp 13 07/09/23 07:30 BP 124/77 07/09/23 07:30 Pulse Ox 96 07/09/23 07:30 FiO2 Intake & Output 07/08/23 07/09/23 07/09/23 18:59 06:59 18:59 Intake Total 1016 600 Balance 1016 600 Intake: Oral 1016 600 Other: Voiding Method Bedside Commode Bedside Commode Bedside Commode # Voids 1 3 1 # Bowel Movements 1 - Exam GENERAL: The patient is alert and oriented x3, not in any acute distress. Well developed, well nourished. HEENT: Pupils are round and equally reacting to light. EOMI. No scleral icterus. No conjunctival pallor. Normocephalic, atraumatic. No pharyngeal erythema. No thyromegaly. CARDIOVASCULAR: S1 and S2 present. No murmurs, rubs, or gallops. PULMONARY: Chest is clear to auscultation, no wheezing , no crackles. ABDOMEN: Soft, nontender, nondistended, normoactive bowel sounds. No palpable organomegaly. MUSCULOSKELETAL: No joint swelling or deformity. EXTREMITIES: No cyanosis, clubbing, or pedal edema. -NEUROLOGICAL: Dysarthria with mild expressive aphasia, rest of cranial nerves a re grossly intact. Right-sided weakness with difficulty moving her right. upper and lower extremities 2/5, left side motor exams 5/5. Sensation is intact. SKIN: No rashes. no petechiae. - Labs CBC & Chem 7: 07/05/23 11:59 07/05/23 11:59 Labs: Abnormal Lab Results - Last 24 Hours (Table) 07/08/23 Range/Units 16:04 POC Glucose (mg/dL) 118 H (70-110) mg/dL Assessment and Plan Assessment: Periods of slurred speech, dysarthria and right hemiplegia secondary to acute stroke involving the left kellie New-onset diabetes mellitus Borderline low vitamin B12 been replaced Generalized weakness associated with recurrent falls at home Right internal carotid artery stenosis, mild 45% per CTA, r ecomomend repeat us every 6 months Plan: Continue with aspirin, Plavix is added Neurology consult Continue with vitamin B12 replacement therapy and metformin PMR consult: Inpatient rehab start Norvasc 5 mg daily starting 07/07/2023 Labs and medication were reviewed.. Continue same treatment. Continue with symptomatic treatment. Resume home medication. Monitor labs and vitals. DVT and GI prophylaxis. Further recommendations as per clinical course of the patient DVT prophylaxis: Subcutaneous heparin GI Prophylaxis: Pepcid PT/OT: reviewed Prognosis is guarded
[2023-07-09 22:17] VITALS: RESP 16
--- NOTE | 2023-07-10 01:56 | P.PN ---
Subjective Progress Note Date: 07/06/23 Patient was seen for a follow-up. Patient's family members were present. Patient seems to be getting worse on the right side. Denies any headache. Objective - Vital Signs Vital signs: Vital Signs Temp 98 F 07/06/23 12:00 Pulse 59 L 07/06/23 12:00 Resp 18 07/06/23 12:00 BP 152/83 07/06/23 12:00 Pulse Ox 96 07/06/23 12:00 FiO2 Intake & Output 07/05/23 07/06/23 07/06/23 18:59 06:59 18:59 Intake Total 240 Balance 240 Intake: Oral 240 Other: Voiding Method Bedside Commode Bedside Commode Bedside Commode # Voids 3 1 # Bowel Movements 4 1 1 - Exam Patient's mental status is normal. Her speech is mild to moderately dysarthric. No aphasia. Cranial nerves significant for right facial droop, central type. Other cranial nerves are all normal. On muscle strength testing, patient has right pronator drift, and it droops about 70, and hits the bed. On muscle strength testing (right/left) deltoid 3+4-/5, triceps 4/5, biceps 4+/5, personnel and payroll technician 2-3/5, hip flexion 4-4-/5, ankle dorsiflexion 0/5. Sensory to touch is equal with no neglect. Cerebellar functions revealed ataxia for [id number] testing in the right arm, but not in the leg. 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 Mechanism of stroke likely from small vessel disease. Current NIH stroke scale seems to have gotten worse, about 8. * Hypertension, not treated * New onset diabetes * Hyperlipidemia * Excessive stressors. Plan: * Patient has presented with an acute stroke, with right hemiparesis. Patient did not receive TPA at [facility], as her initial NIH stroke scale was 1. Her symptoms have slightly got worse overnight with slurred speech and right-sided weakness. * MRI of the brain without contrast revealed acute ischemic stroke left medial brainstem at the level of kellie. I personally reviewed MRI, agree with the findings. * 2-D echo with bubble study revealed normal left-ventricular size and systolic function, with EF 55-60%. Left atrial size is normal. Bubble study was negative for any shunt. * CTA head: No proximal intracranial arterial occlusion or high-grade stenosis seen. * CTA of the neck: No acute vascular findings in the neck. Mild, borderline moderate approximate 45% right ICA stenosis. 0% left ICA stenosis. The vertebral arteries are patent without stenosis. The cervical arteries demonstrated multifocal luminal irregularity consistent with atherosclerosis versus fibromuscular dysplasia. * Carotid Doppler, revealed mild atherosclerotic plaque in the bilateral carotid bifurcations. Approximately 50-69% stenosis at the origin of the right ICA with less than 50% stenosis of the origin of left ICA. Antegrade flow in both vertebral arteries. * Patient's stroke involves the brainstem, therefore the right ICA stenosis is clinically asymptomatic at this time. Recommend follow-up ultrasound every 6 months. * Fasting a.m. lipid panel cholesterol 224, LDL 135, HDL 65, triglycerides 118. Patient will be started on high intensity statins with Lipitor 80 mg daily. * Hemoglobin A1c 7.0. Recommend healthy lifestyles, dietary modification. Follow hemoglobin A1c in 3-6 months. * B12 340. Patient given vitamin B12 1000 g IM 1 dose and agree with continuing B12 1000 g orally daily thereafter. TSH normal. * Permissive hypertension for another 24 hours. Patient very high risk of worsening hemiparesis because of the extent of pontine ischemia noted on the MRI brain. * Patient was on aspirin 81 mg daily at home. Patient has failed aspirin regimen. Patient started on Plavix 75 mg daily. Continue dual antiplatelet medications. * Agree with starting Pepcid for gastric ulcer prophylaxis. * Neuro checks. * Telemetry monitoring rule out any arrhythmia * PT, OT, speech therapy * DVT prophylaxis: Heparin 5000 units subcu every 12 hours * Patient accepted to inpatient rehabilitation, pending insurance authorization.. * Discussed with family in detail.
--- NOTE | 2023-07-10 02:01 | P.PN ---
Subjective Progress Note Date: 07/07/23 Patient was seen for a follow-up. Patient's family members were present. Patient continues to be very weak on the right side. Denies any headache. Patient trying to walk with the physical therapist with complete to assist. Her right leg malika up. Patient's family said that patient has history of head tremors for about 25 years. However since she had stroke, her head tremors have resolved. I in formed that this is partly that she is mostly in the bed. Objective - Vital Signs Vital signs: Vital Signs Temp 97.7 F 07/09/23 19:43 Pulse 69 07/09/23 19:43 Resp 16 07/09/23 19:55 BP 103/63 07/09/23 19:43 Pulse Ox 96 07/09/23 19:43 FiO2 Intake & Output 07/09/23 07/09/23 07/10/23 06:59 18:59 06:59 Intake Total 600 240 Balance 600 240 Intake: Oral 600 240 Other: Voiding Method Bedside Commode Bedside Commode Bedside Commode # Voids 3 1 3 # Bowel Movements 1 3 - Exam Patient's mental status is normal. Her speech is mild to moderately dysarthric. No aphasia. Cranial nerves significant for right facial droop, central type. Other cranial nerves are all normal. Muscle strength testing was deferred, as patient is working with physical therapist. After therapy was done, patient was briefly noticed, that she contin ues to have right-sided weakness quite significant. Sensory to touch is equal with no neglect. Cerebellar functions revealed ataxia for [id number] testing in the right arm, but not in the leg. 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 Mechanism of stroke likely from small vessel disease. Current NIH stroke scale seems to have gotten worse, about 8. * Hypertension, not treated * New onset diabetes * Hyperlipidemia * Essential tremors * Excessive stressors. Plan: * Patient has presented with an acute stroke, with right hemiparesis. Patient did not receive TPA at [facility], as her initial NIH stroke scale was 1. Her right hemiparesis seems to have progressively got worse, with current NIH stroke scale 8. This is not unusual with pontine lacune, which stutters before completing stroke. * MRI of the brain without contrast revealed acute ischemic stroke left medial brainstem at the level of kellie. I personally reviewed MRI, agree with the findings. * 2-D echo with bubble study revealed normal left-ventricular size and systolic function, with EF 55-60%. Left atrial size is normal. Bubble study was negative for any shunt. * CTA head: No proximal intracranial arterial occlusion or high-grade stenosis seen. * CTA of the neck: No acute vascular findings in the neck. Mild, borderline moderate approximate 45% right ICA stenosis. 0% left ICA stenosis. The vertebral arteries are patent without stenosis. The cervical arteries demonstrated multifocal luminal irregularity consistent with atherosclerosis versus fibromuscular dysplasia. * Carotid Doppler, revealed mild atherosclerotic plaque in the bilateral carotid bifurcations. Approximately 50-69% stenosis at the origin of the right ICA with less than 50% stenosis of the origin of left ICA. Antegrade flow in both vertebral arteries. * Patient's stroke involves the brainstem, therefore the right ICA stenosis is clinically asymptomatic at this time. Recommend follow-up ultrasound every 6 months. * Fasting a.m. lipid panel cholesterol 224, LDL 135, HDL 65, triglycerides 118. Patient will be started on high intensity statins with Lipitor 80 mg daily. * Hemoglobin A1c 7.0. Recommend healthy lifestyles, dietary modification. Follow hemoglobin A1c in 3-6 months. * B12 340. Patient given vitamin B12 1000 g IM 1 dose and agree with continuing B12 1000 g orally daily thereafter. TSH normal. * Patient not on any antihypertensives. Blood pressure seems to be getting better by itself. Patient very high risk of worsening hemiparesis because of the extent of pontine ischemia noted on the MRI brain. * Patient was on aspirin 81 mg daily at home. Patient has failed aspirin regimen. Patient started on Plavix 75 mg daily. Continue dual antiplatelet medications. * Agree with starting Pepcid for gastric ulcer prophylaxis. * Neuro checks. * Telemetry monitoring rule out any arrhythmia * PT, OT, speech therapy * DVT prophylaxis: Heparin 5000 units subcu every 12 hours * Patient accepted to inpatient rehabilitation, pending insurance authorization.. * Discussed with family in detail.
--- NOTE | 2023-07-10 02:04 | P.PN ---
Subjective Progress Note Date: 07/08/23 Patient was seen for a follow-up. Patient's family members including his son, [id number], and 3 grandchildren were present today. Patient continues to have dysarthria and right hemiparesis. Patient's family said that patient has history of head tremors for about 25 years. However since she had stroke, her head tremors have resolved. I informed that this is partly that she is mostly in the bed. Objective - Vital Signs Vital signs: Vital Signs Temp 98.3 F 07/08/23 09:45 Pulse 61 07/08/23 11:35 Resp 16 07/08/23 14:05 BP 139/76 07/08/23 11:35 Pulse Ox 98 07/08/23 11:35 FiO2 Intake & Output 07/07/23 07/08/23 07/08/23 18:59 06:59 18:59 Intake Total 228 358 Balance 228 358 Intake: Oral 228 358 Other: Voiding Method Bedside Commode Bedside Commode Bedside Commode # Voids 1 1 1 # Bowel Movements 1 1 - Exam Patient's mental status is normal. Her speech is mild to moderately dysarthric. No aphasia. Cranial nerves significant for right facial droop, central type. Other cranial nerves are all normal. Muscle strength testing reveals biceps 3, triceps 3+, deltoid 3, gaming worker 2, hip flexion 2, ankle dorsiflexion 0. Sensory to touch is equal with no neglect. Cerebellar functions revealed ataxia for [id number] testing in the right arm, but not in the leg. 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 Mechanism of stroke likely from small vessel disease. Current NIH stroke scale seems to have gotten worse, about 8. * Hypertension, not treated * New onset diabetes * Hyperlipidemia * Essential tremors * Excessive stressors. Plan: * Patient has presented with an acute stroke, with right hemiparesis. Patient did not receive TPA at [facility], as her initial NIH stroke scale was 1. Her right hemiparesis seems to have progressively got worse, with current NIH stroke scale 8. This is not unusual with pontine lacune, which stutters before completing stroke. * MRI of the brain without contrast revealed acute ischemic stroke left medial brainstem at the level of kellie. I personally reviewed MRI, agree with the findings. * 2-D echo with bubble study revealed normal left-ventricular size and systolic function, with EF 55-60%. Left atrial size is normal. Bubble study was negative for any shunt. * CTA head: No proximal intracranial arterial occlusion or high-grade stenosis seen. * CTA of the neck: No acute vascular findings in the neck. Mild, borderline moderate approximate 45% right ICA stenosis. 0% left ICA stenosis. The vertebral arteries are patent without stenosis. The cervical arteries demonstrated multifocal luminal irregularity consistent with atherosclerosis versus fibromuscular dysplasia. * Carotid Doppler, revealed mild atherosclerotic plaque in the bilateral carotid bifurcations. Approximately 50-69% stenosis at the origin of the right ICA with less than 50% stenosis of the origin of left ICA. Antegrade flow in both vertebral arteries. * Patient's stroke involves the brainstem, therefore the right ICA stenosis is clinically asymptomatic at this time. Recommend follow-up ultrasound every 6 months. * Fasting a.m. lipid panel cholesterol 224, LDL 135, HDL 65, triglycerides 118. Patient will be started on high intensity statins with Lipitor 80 mg daily. * Hemoglobin A1c 7.0. Recommend healthy lifestyles, dietary modification. Follow hemoglobin A1c in 3-6 months. * B12 340. Patient given vitamin B12 1000 g IM 1 dose and agree with continuing B12 1000 g orally daily thereafter. TSH normal. * Patient not on any antihypertensives. Blood pressure seems to be getting better by itself. Patient very high risk of worsening hemiparesis because of the extent of pontine ischemia noted on the MRI brain. * Patient was on aspirin 81 mg daily at home. Patient has failed aspirin regimen. Patient started on Plavix 75 mg daily. Continue dual antiplatelet medications. * Agree with starting Pepcid for gastric ulcer prophylaxis. * Neuro checks. * Telemetry monitoring rule out any arrhythmia * PT, OT, speech therapy * DVT prophylaxis: Heparin 5000 units subcu every 12 hours * Patient accepted to inpatient rehabilitation, pending insurance authorization.. * Discussed with family in detail.
--- NOTE | 2023-07-10 02:10 | P.PN ---
Subjective Progress Note Date: 07/09/23 Patient was seen for a follow-up. Patient was by herself in the room. Family members were not present. Patient is very pleasant, trying her best to get better with right hemiparesis. Patient's family said that patient has history of head tremors for about 25 years. However since she had stroke, her head tremors have resolved. I informed that this is partly that she is mostly in the bed. Objective - Vital Signs Vital signs: Vital Signs Temp 98.2 F 07/10/23 01:28 Pulse 69 07/10/23 01:28 Resp 16 07/10/23 01:28 BP 103/57 07/10/23 01:28 Pulse Ox 94 L 07/10/23 01:28 FiO2 Intake & Output 07/09/23 07/09/23 07/10/23 06:59 18:59 06:59 Intake Total 600 240 Balance 600 240 Intake: Oral 600 240 Other: Voiding Method Bedside Commode Bedside Commode Bedside Commode # Voids 3 1 3 # Bowel Movements 1 3 - Exam Patient's mental status is normal. Her speech is mild to moderately dysarthric. No aphasia. Cranial nerves significant for right facial droop, central type. Other cranial nerves are all normal. Muscle strength testing reveals biceps 4, triceps 4, deltoid 3+, treasury manager 2, hip flexion 3-, ankle dorsiflexion 2+. Sensory to touch is equal with no neglect. Cerebellar functions revealed ataxia for [id number] testing in the right arm, but not in the leg. 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 Mechanism of stroke likely from small vessel disease. Patient seems to have improved significantly on examination today. * Hypertension, not treated * New onset diabetes * Hyperlipidemia * Essential tremors * Excessive stressors. Plan: * Patient appears to have improved today noticeably as compared to examination over the last few days. Hopefully she has passed the vanessa and is now on the improvement side. * MRI of the brain without contrast revealed acute ischemic stroke left medial brainstem at the level of kellie. I personally reviewed MRI, agree with the findings. * 2-D echo with bubble study revealed normal left-ventricular size and systolic function, with EF 55-60%. Left atrial size is normal. Bubble study was negative for any shunt. * CTA head: No proximal intracranial arterial occlusion or high-grade stenosis seen. * CTA of the neck: No acute vascular findings in the neck. Mild, borderline moderate approximate 45% right ICA stenosis. 0% left ICA stenosis. The vertebral arteries are patent without stenosis. The cervical arteries demonstrated multifocal luminal irregularity consistent with atherosclerosis versus fibromuscular dysplasia. * Carotid Doppler, revealed mild atherosclerotic plaque in the bilateral carotid bifurcations. Approximately 50-69% stenosis at the origin of the right ICA with less than 50% stenosis of the origin of left ICA. Antegrade flow in both vertebral arteries. * Patient's stroke involves the brainstem, therefore the right ICA stenosis is clinically asymptomatic at this time. Recommend follow-up ultrasound every 6 months. * Fasting a.m. lipid panel cholesterol 224, LDL 135, HDL 65, triglycerides 118. Patient will be started on high intensity statins with Lipitor 80 mg daily. * Hemoglobin A1c 7.0. Recommend healthy lifestyles, dietary modification. Follow hemoglobin A1c in 3-6 months. * B12 340. Patient given vitamin B12 1000 g IM 1 dose and agree with continuing B12 1000 g orally daily thereafter. TSH normal. * Patient not on any antihypertensives. Blood pressure seems to be getting better by itself. Patient very high risk of worsening hemiparesis because of the extent of pontine ischemia noted on the MRI brain. * Patient was on aspirin 81 mg daily at home. Patient has failed aspirin regimen. Patient started on Plavix 75 mg daily. Continue dual antiplatelet medications. * Agree with starting Pepcid for gastric ulcer prophylaxis. * Neuro checks. * Telemetry monitoring rule out any arrhythmia * PT, OT, speech therapy * DVT prophylaxis: Heparin 5000 units subcu every 12 hours * Recommend strongly patient transferred to inpatient rehabilitation. Patient is a excellent candidate. Patient has now started showing signs of clinical improvement as above. * Neurologically cleared for transfer. Dr. Sujit Jaimes will be available for any neurological concerns starting from tomorrow.
[2023-07-10 07:20] LABS: Glucose,Whole Blood 106 mg/dL (70-110)
[2023-07-10 07:53] VITALS: TEMP 98
[2023-07-10] MEDS: ASPIRIN 81 MG PO SCH (09:15)
[2023-07-10] MEDS: metFORMIN 500 MG TAB PO SCH (09:15)
[2023-07-10] MEDS: CYANOCOBALAMIN 500 MCG TAB PO SCH (09:15)
[2023-07-10] MEDS: CLOPIDOGREL 75 MG TAB PO SCH (09:15)
[2023-07-10] MEDS: HEPARIN SODIUM,PORCINE 5,000 UNIT/ML 1 ML VIAL SQ SCH (09:16)
[2023-07-10] MEDS: FAMOTIDINE 20 MG/2 ML VIAL IV SCH (10:28)
[2023-07-10 11:58] LABS: Glucose,Whole Blood 140 mg/dL (70-110)
--- NOTE | 2023-07-10 13:05 | P.PN ---
Subjective Progress Note Date: 07/10/23 Principal diagnosis: CVA Irma Pavon is an 83 year old, female, who lives in a single story home, with 2 GRACE with a left handrail. Prior to admission, she was ambulating without an assistive device. She was independent for basic/advanced ADLs. Current driving: yes. Retired: yes. Support system: , family She was admitted to [facility] on 07/03. She presented to the ED c/o generalized weakness. On the day of admission patient stated that she woke up at 4 AM feeling generally weak. The patient went back to sleep woke up at 6 AM and attempted to make breakfast but had significant difficulty doing so. EMS was called and found the patient patient laying down on the ground vomit on herself. She was originally seen at [facility] and was sent to [facility] for further evaluation. At [place] patient had a CT of the head an d neck showing moderate stenosis of the right ICA with no acute findings. She was found to have periods of slurred speech, dysarthria and right hemiparesis which prompted further studies. Unfortunately patient was outside the window for tPA. C. difficile negative. Carotid ultrasound showed mild atherosclerotic plaque in the bilateral carotid bifurcations. CT of the brain showed age- related changes with nothing acute. Echocardiogram revealed an EF of 55 to 60% with no significant abnormality and a negative bubble study. MRI of the brain completed 07/05 showed acute ischemic changes of the left medial brainstem at the level kellie. PM&R consulted for rehab recommendations. Therapy evaluations reviewed; patient needing max assist for bed mobility, total assist toileting ability, total assist LB dressing, max assist bathing, min assist grooming, ambulation 4 feet mod assist with 2 WW, mod assist transfers with 2 WW 07/06/2023: Patient found in her room, sitting in chair, with granddaughter at bedside. Patient denies CP, SOB and abdominal pain. She does complain of some weakness and speech difficulties. She is looking forward to working with therapy, gaining some strength and endurance and returning home to her . Discussed therapy options, and due to distance patient requesting [facility] closer to home. Did discuss the differences in therapies received at a [facility] versus [facility]. Patient denies other concerns at this time. 07/07/23: Patient found sitting in recliner at bedside, visiting with . She denies CP, SOB and abdominal pain. She denies pain. Issues with urination, LBM 07/05. Patient is looking forward to working with therapy, gaining some strength and endurance, and returning home to her . Patient and family are now requesting [facility] over [facility]. Patient denies concerns at this time. Of note, overnight there was suspicion of diplopia with repeat CT of the brain showing no changes. 07/10/23: Patient states she is doing better, has more movement in her right arm and leg. She denies CP, SOB, and abdominal pain. She had a BM today. She denies issues with urination, denies issues with swallow. She occasionally has blurred vision but feels it is how she is laying in bed while watching TV. She denies N/T/B sensations in arms or legs. She has no complaints of pain. Her family is at her bedside. Reports she is moving better. She is stable for discharge and transfer to [facility]. Therapy progress: Mod assist with bed mobility and transfers, min assist with gait 10 ft 2ww, UB dressing min assist, LB dressing max assist, bathing mod assist, grooming supervision. Objective - Vital Signs Vital signs: Vital Signs Temp 98.0 F 07/10/23 07:38 Pulse 66 07/10/23 07:38 Resp 16 07/10/23 07:38 BP 122/74 07/10/23 07:38 Pulse Ox 93 L 07/10/23 07:38 FiO2 Intake & Output 07/09/23 07/10/23 07/10/23 18:59 06:59 18:59 Intake Total 240 600 Balance 240 600 Intake: Oral 240 600 Other: Voiding Method Bedside Commode Bedside Commode Bedside Commode # Voids 1 1 1 # Bowel Movements 1 1 1 - Exam General: WDWN, elderly female, laying in bed, family at bedside, NAD Head: Normocephalic, atraumatic. Eyes: Symmetric, glasses on Ears: Symmetric. Hearing within normal limits. Mouth: Clear. Cardiac: hospital monitor on. Calves supple, non tender, no LE edema Lungs: Breathing comfortably on RA. Chest symmetric. Abdomen: Soft, nontender. Extremities: Arthritic changes consistent with age. Neurological: Alert and oriented x 3. FTN and HTS impaired on the right Speech is mildly slurred/dysarthric and fluent without paraphasic errors Musculoskeletal: ROM WFL EXCEPT: right sided hemiparesis, distal weakness greater than proximal MMT UE Sh Abd EE EF FABD WE HG Right 3- 3+ 3+ 3- Left 5 5 5 5 MMT LE HF KE DF EHL Right 3+ 3+ 3 2 Left 5 5 5 5 Reflexes 2/4 symmetric Skin: Skin intact where visible to head, neck, and bilateral upper and lower extremities EXCEPT: PIV, bruising to right hand Psych: Calm, cooperative - Labs CBC & Chem 7: 07/05/23 11:59 07/05/23 11:59 Labs: Abnormal Lab Results - Last 24 Hours (Table) 07/09/23 07/09/23 07/10/23 Range/Units 17:02 20:44 11:54 POC Glucose (mg/dL) 125 H 115 H 140 H (70-110) mg/dL Assessment and Plan Assessment: #Gait impairment/impaired ADLs secondary to acute left pontine ischemic stroke with right-sided hemiparesis -Aspirin, Plavix -Neurology following -PT/OT/BARREL INSPECTOR TIGHT -Cardiology following, possible CHIVO 07/10/23 cardio cleared #Dysarthria secondary to above #Fall risk secondary to above -Fall precautions #New onset diabetes -A1c 7.0% -Metformin #Moderate carotid artery stenosis per CTA -Recommended repeat ultrasound every 6 months for monitoring #Hypertension #Borderline low vitamin B12 -Supplemented # Bowel/ Bladder: Nursing to monitor and report concerns if any. -07/07/23: denies issues, LBM 07/05 # Diet -Diabetic -07/07/23: tolerating diet without issues -07/10/23 carb consistent # Skin/wound: Skin/Wound care to follow as needed # Pain Management -Dilaudid 0.5 mg every 3 hours as needed -07/10/23 no complaints of pain, recommend DC IV pain meds # DVT Prophylaxis: Defer to Ortho/IM management. -Subcu heparin # Comorbidities: none reported # Your medical dx and mgt Goals: Modified Independent mobility and ADLS both basic and advanced; increased functional mobility/strength; increased balance, safety, endurance. Improvement in medical issues through your care. Barriers: Dysarthria, right-sided hemiparesis Discharge recommendation: Patient stable for discharge to [facility] today. Family agreeable. Patient seen and examined in coordination with Dr. Vickers
--- NOTE | 2023-07-10 13:17 | P.DS ---
Providers Date of admission: 07/05/23 07:53 Expected date of discharge: 07/10/23 Attending physician: María Elena Mandujano Consults: 07/03/23 18:44 Consult Physician Urgent Consulting Provider: Lorene Stein Consult Reason/Comments: Dysarthria Do you want consulting provider notified?: Yes 07/05/23 15:03 Consult Physician Routine Consulting Provider: Tereso Azul Consult Reason/Comments: CVA, right hemiparesis for rehab Do you want consulting provider notified?: Yes 07/07/23 06:53 Consult Physician Urgent Consulting Provider: Franco Sin Consult Reason/Comments: recurrent TIA? +stroke possible TIA Do you want consulting provider notified?: Yes Primary care physician: Domenic Allison MD Hospital Course: Discharge diagnoses; Periods of slurred speech, dysarthria and right hemiplegia secondary to acute stroke involving the left kellie New-onset diabetes mellitus Borderline low vitamin B12 been replaced Generalized weakness associated with recurrent falls at home Right internal carotid artery stenosis, mild 45% per CTA, r ecomomend repeat us every 6 months Plan; MRI of the brain without contrast revealed acute ischemic stroke left medial brainstem at the level of kellie. I personally reviewed MRI, agree with the findings. 2-D echo with bubble study revealed normal left-ventricular size and systolic function, with EF 55-60%. Left atrial size is normal. Bubble study was negative for any shunt. CTA head: No proximal intracranial arterial occlusion or high-grade stenosis seen. CTA of the neck: No acute vascular findings in the neck. Mild, borderline moderate approximate 45% right ICA stenosis. 0% left ICA stenosis. The vertebral arteries are patent without stenosis. The cervical arteries demonstrated multifocal luminal irregularity consistent with atherosclerosis versus fibromuscular dysplasia. Carotid Doppler, revealed mild atherosclerotic plaque in the bilateral carotid bifurcations. Approximately 50-69% stenosis at the origin of the right ICA with less than 50% stenosis of the origin of left ICA. Antegrade flow in both vertebral arteries. Patient's stroke involves the brainstem, therefore the right ICA stenosis is clinically asymptomatic at this time. Recommend follow-up ultrasound every 6 month Patient not on any antihypertensives. Blood pressure seems to be getting better by itself. Patient very high risk of worsening hemiparesis because of the extent of pontine ischemia noted on the MRI brain. Patient was on aspirin 81 mg daily at home. Patient has failed aspirin regimen. Patient started on Plavix 75 mg daily. Continue dual antiplatelet medications. Being discharged to rehab in stable condition Hospital course; This is a pleasant 83 years old female with multiple medical problems She was transferred from [facility] for consults of weakness and slurred speech She has history of multiple falls over the last year. Her PCP is Dr. Allison, she was taken baby aspirin 81 mg at home Monday she did not take her aspirin because she was busy and then Monday yesterday she started having speech difficulty, her speech still obvious dysarthric although she can find or spot with some hesitation. Also patient complaining of from weakness in the right arm and leg She denies headache or dizziness, no blurred vision. No chest pain or dyspnea. No abdominal pain or vomiting or diarrhea. No urinary complaints. She denies smoking alcohol or illicit drugs On reviewing the records from [facility] EKG showing sinus bradycardia with right bundle branch block Urine drug screen showing 2-4 highly 4 field wbc, is not suspicious of infection. Lactic acid within the reference range at 1.8 WBC 5.0, hemoglobin 14.8, platelet count 145 which is mildly low Creatinine 0.9, BUN is 14 Calcium 9.2, sodium 141, potassium 4.1, I and Erin 14 Liver enzymes AST, ALT and total bilirubin are not elevated at 18, 9 and 0.6 respectively Influenza A and type B, RSV, SARS (coronavirus) are and detected Troponin is within the reference range at 3.6, reference range is 0.0-17.5 CTA of the head proximal intracranial arterial occlusion or high-grade stenosis CTA of the neck showing no vascular acute findings, no left ICA stenosis, 45% RCA stenosis 07/05/2023 Patient still has dysarthria and right hemiparesis Blood pressure elevated for permissive hypertension Hemoglobin A1c 7, patient informed she has diabetes and she agrees to start medication pending and then we will start her on metformin Vitamin B12: 348 which is borderline low level. We don't replacement with one- time dose of vitamin B12 injection and then continue oral dose tomorrow MRI of the brain pending Consult PMR 07/06/2023 patient still complaining from patient right hemiplegia more in the right leg than the right arm, she says her right leg she can move it and bended little bit compared to yesterday and the right arm is SO very little better this morning, she can hardly move both arm and leg. Her speech is improving although not normal. No other new complaints. The brain showing: Acute ischemic change left medial brain stem of the level of the kellie, MRI reviewed by myself Patient remains on aspirin and Plavix, metformin vitamin B12 spills PMR consulted and patient may go to inpatient rehab. 07/07/2023 Patient dysarthria and right hemiparesis improving, patient she is happy she can move her shoulder, right elbow and 3 over her right hand better than yesterday. last night there was suspicion of diplopia, repeat CAT scan of the brain ordered showing no changes. Cardiology team were consulted and the recommended loop recorder as an outpatient. Today when asked the patient and she said she had hot flashes and sweating which prolonged more than usual in this portion was concerned however she feels better now and she denies any double vision. Patient now is agreeable to go to like urine inpatient rehab other than the outside facility as she got 3 hours of preoperative today compared to 1.[address] Patient remains on aspirin and Plavix. Patient is medically stable for discharge and pending replacement 07/08/2023 Patient dysarthria improved, very close to normal. Start the proximity keep improving today better than yesterday, for example today she can move all her right hand finger compared to 3 fingers yesterday. Which is the same feeling of the patient and family. Patient remains on aspirin and Plavix Teacher [facility] on the case. Patient is medically stable for discharge pending placement 07/09/2023 Patient continued to improve every day slowly and gradually, she can move more her right upper extremity to certain level. Cardiology cleared the patient for discharge and follow-up with Dr. Jerez in 2 weeks, instruction place and the discharge recommendations. Patient is medically stable pending placement to inpatient rehab at [facility] tomorrow Continue with aspirin and Plavix Patient's wants to be DO NOT RESUSCITATE 07/10. Patient seen and examined. Patient being discharged to rehab in stable condition PHYSICAL EXAMINATION: GENERAL: The patient is alert and oriented x3, not in any acute distress. Well developed, well nourished. HEENT: Pupils are round and equally reacting to light. EOMI. No scleral icterus. No conjunctival pallor. Normocephalic, atraumatic. No pharyngeal erythema. No thyromegaly. CARDIOVASCULAR: S1 and S2 present. No murmurs, rubs, or gallops. PULMONARY: Chest is clear to auscultation, no wheezing or crackles. ABDOMEN: Soft, nontender, nondistended, normoactive bowel sounds. No palpable organomegaly. MUSCULOSKELETAL: No joint swelling or deformity. EXTREMITIES: No cyanosis, clubbing, or pedal edema. NEUROLOGICAL: Dysarthria with mild expressive aphasia, rest of cranial nerves are grossly intact. Right-sided weakness with difficulty moving her right. upper and lower extremities 2/5, left side motor exams 5/5. SKIN: No rashes. Dictation was produced using [employer] dictation software. please excuse any grammatical, word or spelling errors. Patient Condition at Discharge: Good Plan - Discharge Summary New Discharge Prescriptions: New Atorvastatin [Lipitor] 80 mg PO HS 30 Days #30 tab Clopidogrel [Plavix] 75 mg PO DAILY 30 Days #30 tab metFORMIN HCL [Glucophage] 500 mg PO BID-W/MEALS 30 Days #30 tab Cyanocobalamin [Vitamin B-12] 1,000 mcg PO DAILY 30 Days #30 tab Continue Calcium Lactate 84mg 252 tab PO BID Biotin 300mcg 300 mcg PO DAILY Gelatin 650mg 650 mg PO DAILY Cholecalciferol (Vitamin D3) [Vitamin D3 (5000 Iu)] 125 mcg PO DAILY Aspirin EC [Ecotrin Low Dose] 81 mg PO DAILY [place]-3 Fatty Acids [[place]-3] 1,000 mg PO BID Vitamin E (Dl,Tocopheryl Acet) [Vitamin E (400 Iu = 180 mg)] 400 unit PO BID Vitamin K2 100 mcg PO DAILY Vitamin A Palmitate [Vitamin A-25 (25,000 Units = 7500 MCG)] 7,500 mcg PO DAILY Discharge Medication List Aspirin EC [Ecotrin Low Dose] 81 mg PO DAILY 08/04/20 [History] Biotin 300mcg 300 mcg PO DAILY 08/04/20 [History] Calcium Lactate 84mg 252 tab PO BID 08/04/20 [History] Cholecalciferol (Vitamin D3) [Vitamin D3 (5000 Iu)] 125 mcg PO DAILY 08/04/20 [History] Gelatin 650mg 650 mg PO DAILY 08/04/20 [History] [place]-3 Fatty Acids [[place]-3] 1,000 mg PO BID 07/03/23 [History] Vitamin A Palmitate [Vitamin A-25 (25,000 Units = 7500 MCG)] 7,500 mcg PO DAILY 07/03/23 [History] Vitamin E (Dl,Tocopheryl Acet) [Vitamin E (400 Iu = 180 mg)] 400 unit PO BID 07/03/23 [History] Vitamin K2 100 mcg PO DAILY 07/03/23 [History] Atorvastatin [Lipitor] 80 mg PO HS 30 Days #30 tab 07/10/23 [Rx] Clopidogrel [Plavix] 75 mg PO DAILY 30 Days #30 tab 07/10/23 [Rx] Cyanocobalamin [Vitamin B-12] 1,000 mcg PO DAILY 30 Days #30 tab 07/10/23 [Rx] metFORMIN HCL [Glucophage] 500 mg PO BID-W/MEALS 30 Days #30 tab 07/10/23 [Rx] Follow up Appointment(s)/Referral(s): Franco Sin MD [STAFF PHYSICIAN] - 2 Weeks Domenic Allison MD [Primary Care Provider] - 1-2 days Shailesh Swanson DO [STAFF PHYSICIAN] - 1 Week Patient Instructions/Handouts: Ischemic Stroke (GEN) Discharge Disposition: TRANSFER TO SNF/ECF
[2023-07-10 13:57] VITALS: BP 152/84; PULSE 68
== END 2023-07-10 14:31 | DRG 65 ==
LOC: EC 17:16 → 6NMEDSUR 18:44 → 3SCARD 07-04 18:04 → OBSVTOIN 07-05 07:53 → 5NMEDONC 07-08 19:19
PROVIDERS: ADMIT Hospitalist; ATTEND Hospitalist
DX: I63.231 Cerebral infarction due to unspecified occlusion or stenosis of right carotid arteries (principal); G81.91 Hemiplegia, unspecified affecting right dominant side; E11.65 Type 2 diabetes mellitus with hyperglycemia; I10 Essential (primary) hypertension; R29.702 NIHSS score 2; R29.810 Facial weakness; R47.1 Dysarthria and anarthria; R29.6 Repeated falls; I45.10 Unspecified right bundle-branch block; E53.8 Deficiency of other specified B group vitamins; R27.0 Ataxia, unspecified; E78.5 Hyperlipidemia, unspecified; G25.0 Essential tremor; R29.708 NIHSS score 8; H53.2 Diplopia; Z74.1 Need for assistance with personal care; Z74.09 Other reduced mobility; Z79.82 Long term (current) use of aspirin; Z79.899 Other long term (current) drug therapy; Z91.81 History of falling; Z63.8 Other specified problems related to primary support group
CPT/HCPCS: 70450; 70551; 80048; 80061; 80076; 82607; 83036; 83735; 84443; 85025; 85610; 85730; 87324; 93306; 93880; 96361; 96372; 96374; 99285